=== PATIENT | male | born 1960 | race Caucasian/White ===

== ENCOUNTER 2016-09-19 12:39 | Emergency (ER) | payer BC ==
[2016-09-19 14:22] VITALS: BP 147/98
--- NOTE | 2016-09-19 14:40 | UC ---
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 pain is an aching staabbin fpain that statrts in his neck and radites into his left shoulder pain increases woth turning his head to the left nothign makes the pain lessen tried heat and colsd without relief took some tylenol PM last night with minimal relief denies any trauma to neck 4 months ago denies fever , headache, - History of Current Complaint Chief Complaint: UCGeneralIllness Stated Complaint: NECK/SHOULDER PAIN Time Seen by Provider: 09/19/16 14:31 Hx Obtained From: Patient - Allergies/Home Medications Allergies/Adverse Reactions: Allergies Allergy/AdvReac Type Severity Reaction Status Date / Time No Known Allergies Allergy Verified 09/19/16 14:05 Home Medications: Home Medications Glucosamine Sulfate 1,000 mg PO 09/19/16 [History Confirmed 09/19/16] Tamsulosin CAP* [Flomax CAP*] 0.4 mg PO DAILY 09/19/16 [History Confirmed ] PMH/Surg Hx/FS Hx/Imm Hx Previously Healthy: Yes Endocrine History Of: Denies: Diabetes, Thyroid Disease Cardiovascular History Of: Reports: Hypertension Denies: Cardiac Disorders, Pacemaker/ICD Respiratory History Of: Denies: COPD, Asthma GI/ History Of: Denies: Ulcer, Renal Disease Other History Of: Anticoagulant Therapy - Surgical History Surgical History: Yes Surgery Procedure, Year, and Place: Abdominal hernia -> 10 years ago. - Family History Known Family History: Negative: Cardiac Disease, Hypertension, Diabetes Family History: NON CONTRIBUTORY - Social History Occupation: Employed Full-time Lives: With Family Alcohol Use: None Substance Use Type: None Smoking Status (MU): Former Smoker Type: Cigarettes Amount Used/How Often: quit 2002 When Did the Patient Quit Smoking/Using Tobacco: 2002 - Immunization History Most Recent Influenza Vaccination: never Most Recent Tetanus Shot: 9-10 yrs ago Most Recent Pneumonia Vaccination: never Review Of Systems Constitutional: Positive: Negative Skin: Positive: Negative Eyes: Positive: Negative ENT: Positive: Negative Respiratory: Positive: Negative Cardiovascular: Positive: Negative Gastrointestinal: Positive: Negative Genitourinary: Positive: Negative Musculoskeletal: Positive: Other: - neck pain Neurological: Positive: Negative Psychological: Positive: Negative All Other Systems Reviewed And Are Negative: Yes Physical Exam Triage Information Reviewed: Yes Appearance: No Pain Distress, Well-Nourished Vital Signs: Initial Vital Signs Temp 98.7 F 09/19/16 14:10 Pulse 75 09/19/16 14:10 Resp 20 09/19/16 14:10 BP 147/98 09/19/16 14:10 Pulse Ox 95 09/19/16 14:10 Vital Signs Reviewed: Yes Eyes: Positive: Conjunctiva Clear ENT: Positive: Pharynx normal, Nasal drainage Neck: Positive: Supple, Other: - -Neck has no noted deformities or signs of inflammation. Curvature of cervical spine within normal limits. Spinous processes of cervical spine palpable, midline, and non-tender, No step-offs, Flexion, extension, and [id number] rotation of cervical spine causes mild discomfort. tenderness in left side of trapezius Respiratory: Positive: Lungs clear, Normal breath sounds, No respiratory distress, No accessory muscle use Cardiovascular: Positive: RRR, No Murmur, Pulses Normal Abdomen Description: Positive: Nontender, Soft Bowel Sounds: Positive: Present Musculoskeletal: Positive: No Edema Neurological Exam: Normal Psychological Exam: Normal Skin Exam: Normal Neck Pain Course/Dx - Course Course Of Treatment: exam completed. will send to PT for further evaluation and treatment. will treat with muscle relaxer and acetaminophen for acute exacerbation - Differential Dx/Diagnosis Differential Dx/HQI/PQRI: Sprain, Strain, Torticollis Provider Diagnoses: chronic neck pain- acute exacerbation Discharge - Discharge Plan Condition: Stable Disposition: HOME Prescriptions: Cyclobenzaprine TAB* [Flexeril 10 MG TAB*] 10 mg PO BEDTIME #7 tab Patient Education Materials: Chronic Neck Pain (GEN) Referrals: Blayne Hernández DO [Primary Care Provider] - Additional Instructions: Start flexeril as directed. Do not drink alcohol or drive while taking flexeril. Please call physical therapy for further evaluation and treatment. Take acetaminophen for fever or pain. Increase fluids and rest. Please review your discharge instructions. If your symptoms do not improve please call your primary care provider or return to urgent care. Your blood pressure is elevated. Please contact your primary care provider within 1 day -4 weeks for further evaluation.
== END 2016-09-19 15:14 | disposition home or self-care (01) ==
LOC: UCEAST 12:39
DX: M54.2 Cervicalgia (principal); M25.512 Pain in left shoulder; I10 Essential (primary) hypertension; Z87.891 Personal history of nicotine dependence
CPT/HCPCS: 99212; G0463

== ENCOUNTER 2017-05-21 09:25 | Inpatient (IN) | payer BC ==
--- NOTE | 2017-05-13 21:58 | HP ---
HISTORY AND PHYSICAL: DATE OF ADMISSION/SURGERY: 05/21/17 DATE OF OFFICE VISIT: 05/13/17 SURGEON: Faby Lopez MD * (DICTATED BY [facility] ARRIAGA) PROCEDURE: Left total knee arthroplasty. CHIEF COMPLAINT: Left knee pain. HISTORY OF PRESENT ILLNESS: Mr. Hauser is a 57-year-old gentleman with continued complaints of left knee pain secondary to end-stage osteoarthritis. He has failed conservative management, and elected to proceed with a left total knee arthroplasty, which is scheduled for 05/21/[address] Lopez. PAST MEDICAL HISTORY: History of a DVT in 2012. PAST SURGICAL HISTORY: Hernia repair. CURRENT MEDICATIONS: 1. Tamsulosin 0.4 mg daily. 2. Propranolol 10 mg 3 times a day. 3. Tramadol as needed. 4. Vitamin D3. 5. Glucosamine/chondroitin. 6. Xarelto 20 mg daily. ALLERGIES: None. FAMILY HISTORY: Cancer and stroke. SOCIAL HISTORY: He is a former smoker, he quit in 2002. He is a 57-year-old gentleman, lives with his . He denies use of drugs or alcohol. REVIEW OF SYSTEMS: A complete 14-point review of systems was reviewed with the patient, it was positive for history of a DVT in 2012. PHYSICAL EXAMINATION GENERAL: He is well developed, well nourished, in no acute distress. VITAL SIGNS: He stands 6 feet 2 inches tall, weighs 234 pounds. His blood pressure 143/95, his heart rate 74. HEENT: Normocephalic, atraumatic. NECK: Supple. No palpable lymph nodes. PULMONARY: The lungs are clear to auscultation bilaterally. CARDIO: Regular rate and rhythm. Strong S1, S2. ABDOMEN: Soft, nontender, nondistended. NEUROLOGICAL: He is alert, oriented x3. Cranial nerves II through XII are intact. MUSCULOSKELETAL: Left lower extremity, skin is intact. There are no open wounds or abrasions. He has a moderate joint effusion. 10 to 120 degrees of flexion with patellofemoral crepitus. No varus or valgus instability. 2+ dorsalis pedis pulses. His lower extremity muscle group strength were intact at 5/5 and he has intact sensation. ASSESSMENT AND PLAN: Mr. Hauser is a 57-year-old gentleman with end-stage osteoarthritis of the left knee. He has failed conservative management and elected to proceed with a left total knee arthroplasty, which is scheduled with Dr. Lopez on 05/21/17. Dr. Lopez discussed the risks and benefits of the surgery at today's visit and all of his questions were answered. He was instructed to stop his Xarelto today, 05/13/17 will be his last dose. Following the surgery, he will be placed on Lovenox in the hospital for DVT prophylaxis and back home on his home dose Xarelto. He was given a prescription today for Percocet and Colace and he will follow up with Dr. Lopez in 2 weeks after the surgery. [facility] AR[facility]AG[facility] [id number]/[facility] #: [id number] MTDD
[~2017-05-21 09:25] MED LIST: Acetaminophen TAB* 325 MG PO ONE; Buffered Lidocaine 0.9% SYRIN* 5 ML/SYR SYRINGE INTRADERM ONE; Dexamethasone IV* 4 MG/ML 1 ML (4 MG) IV SLOW PU ONE; Sodium Citrate/Citric Acid* 15 ML UDC PO ONE
[2017-05-21] MEDS ORDERED: Acetaminophen TAB* 325 MG ONE (09:37)
[2017-05-21] MEDS ORDERED: Buffered Lidocaine 0.9% SYRIN* 5 ML/SYR SYRINGE ONE (09:37)
[2017-05-21] MEDS ORDERED: Sodium Citrate/Citric Acid* 15 ML UDC ONE (09:37)
[2017-05-21] MEDS ORDERED: Dexamethasone IV* 4 MG/ML 1 ML (4 MG) ONE (09:37)
[2017-05-21] MEDS ORDERED: ceFAZolin 2 GM PREMIX (*) 2 GM/50 ML BAG IVPB ONE (09:38)
[2017-05-21] MEDS ORDERED: Ondansetron INJ* 2 MG/ML VIAL IV PRN ×2 (11:12→14:58)
[2017-05-21] MEDS ORDERED: HYDROcodone/ACETAMIN 5-325 MG* 1 TAB PO PRN (11:12)
[2017-05-21] MEDS ORDERED: HYDROmorphone INJ* 1 MG/ML CARPUJECT SYRINGE IV PRN (11:12)
[2017-05-21] MEDS ORDERED: oxyCODONE/Acetamin 5/325 MG* TAB PO PRN ×2 (11:12→14:58)
[2017-05-21] MEDS ORDERED: fentaNYL* 50 MCG/ML 2 ML VIAL (100 MCG VIAL) IV PRN (11:12)
[2017-05-21] MEDS ORDERED: DiMENhydriNATE IV* 50 MG/ML VIAL IV PUSH PRN (11:12)
[2017-05-21] MEDS ORDERED: oxyCODONE TAB* 5 MG TAB PO PRN (11:12)
[2017-05-21] MEDS ORDERED: fentaNYL* 50 MCG/ML 2 ML VIAL (100 MCG VIAL) ONE (11:27)
[2017-05-21] MEDS ORDERED: Bupivacaine 0.5% SDV PF* 30 ML VIAL ONE (11:27)
[2017-05-21] MEDS ORDERED: Propofol* 500 MG/50 ML BTL ONE (11:27)
[2017-05-21] MEDS ORDERED: Midazolam* 1 MG/ML 2 ML VIAL (2 MG) ONE ×4 (11:27→14:05)
[2017-05-21] MEDS ORDERED: Lidocaine 2% PF * 5 ML VIAL ONE (11:27)
[2017-05-21] MEDS ORDERED: Propofol* 10 MG/ML 20 ML BTL IV PUSH ONE (13:08)
[2017-05-21] MEDS ORDERED: Sterile Water for Inj* 10 ML ONE (13:28)
[2017-05-21] MEDS ORDERED: EPHEDrine (Pressors)* 50 MG/ML VIAL ONE (13:28)
[2017-05-21] MEDS ORDERED: Phenylephrine IV* 40 MCG/ML 10 ML SYRINGE ONE (13:28)
[2017-05-21] MEDS ORDERED: diPHENhydraMINE IV* 50 MG/ML 1 ml VIAL (BENADRYL) IV PRN (14:58)
[2017-05-21] MEDS ORDERED: Bisacodyl SUPP* 10 MG SUPP PR PRN (14:58)
[2017-05-21] MEDS ORDERED: Polyethylene Glycol 3350* 17 GM PACKET PO PRN (14:58)
[2017-05-21] MEDS ORDERED: Acetaminophen TAB* 325 MG PO PRN (14:58)
[2017-05-21] MEDS ORDERED: Magnesium Hydroxide LIQ* 30 ML UDC PO PRN (14:58)
[2017-05-21] MEDS ORDERED: Ondansetron TAB* 4 MG PO PRN (14:58)
[2017-05-21] MEDS ORDERED: ceFAZolin 1 GM in Dextrose (*) 1 GM/50 ML Duplex BAG IVPB SCH (15:00)
--- NOTE | 2017-05-21 15:43 | RAD ---
Indication: Left total knee replacement. 2 views of left knee demonstrates bipolar knee arthroplasty in satisfactory position. IMPRESSION: Left knee replacement in satisfactory position.
[2017-05-21] MEDS: oxyCODONE/Acetamin 5/325 MG* TAB PO PRN ×2 (19:05→23:05)
[2017-05-21] MEDS: Morphine INJ* 2 MG/ML 1 ML SYRINGE (TWO MG - NEW SYRINGE VERSION) IV PRN ×2 (20:27→23:08)
[2017-05-21] MEDS: Docusate CAP* 100 MG PO SCH (20:39)
[2017-05-21] MEDS: ceFAZolin 1 GM in Dextrose (*) 1 GM/50 ML BAG IVPB SCH (20:45)
[2017-05-22] MEDS: oxyCODONE TAB* 5 MG TAB PO PRN ×4 (01:20→19:18)
[2017-05-22] MEDS: oxyCODONE/Acetamin 5/325 MG* TAB PO PRN ×5 (03:31→23:48)
--- NOTE | 2017-05-22 04:13 | OP ---
DATE OF OPERATION: 05/21/17 - ROOM #350 DATE OF : 58 ATTENDING SURGEON: Faby Lopez MD CONTRACT AGENT: [facility] Arceo. Ms. Palencia did help throughout the procedure with preparation of the leg, wound retraction, manipulation of the knee, and wound closure. ANESTHESIOLOGIST: Dr. Fuller. ANESTHESIA: Spinal. PRE-OP DIAGNOSIS: Severe end-stage degenerative osteoarthritis of the left knee joint. POST-OP DIAGNOSIS: Severe end-stage degenerative osteoarthritis of the left knee joint. OPERATIVE PROCEDURE: Left total knee arthroplasty. TOURNIQUET TIME: 56 minutes. COMPLICATIONS: None. ESTIMATED BLOOD LOSS: 300 cc. SPECIMENS: Bone and cartilage from the left knee joint sent to Pathology. HARDWARE USED: This is [employer] cemented total knee arthroplasty hardware. For the femur, a size 7 left Oxinium Legion posterior stabilized femoral component. For the tibia, a size 6 left tibial baseplate Cristal II. For the patella, a 38-mm 3-peg all-poly patella; and for the insert, a 9-mm posterior stabilized articular insert size 5/6. BRIEF HISTORY/INDICATIONS: Mr. Hauser is a 57-year-old gentleman with years of increasingly severe left knee pain. Radiograph showed severe [id number] arthritis. He failed conservative treatment with anti-inflammatories, pain medication, intraarticular injections, and physical therapy. Due to continued pain and decreased quality of life, he elected to undergo left total knee arthroplasty. Informed consent was obtained from the patient. He understood the risks of surgery included, but were not limited to bleeding, infection, damage to nearby structures, continued pain, need for further surgery, intraoperative fracture, nerve palsy, hardware failure or loosening, knee stiffness, loss of motion, stroke, heart attack, blood clot, and . He wished to proceed. INTRAOPERATIVE FINDINGS: Intraoperatively, the patient was noted to have severe cartilage loss from all three compartments. DESCRIPTION OF PROCEDURE: Mr. Hauser was identified in the preanesthesia unit. His left lower extremity was marked as the correct operative side. Informed consent was signed and placed in the chart. The patient was taken to the operating room and placed under spinal anesthesia. A Ruiz catheter was placed. Tourniquet was placed on the left thigh. The left lower extremity was prepped and draped in the usual sterile fashion. Preop time-out was made to correctly identify the patient's side and site. Appropriate perioperative antibiotics were given within 1 hour of incision. Tourniquet was inflated until the tourniquet time for this procedure was 56 minutes. A 14-cm midline incision was made with a #10 blade and carried down to the extensor mechanism. A new #10 blade used to make a standard medial parapatellar arthrotomy. The patella was subluxed laterally. Electrocautery was used to subperiosteally elevate the soft tissue off the superomedial tibia to the mid sagittal plane. The knee was flexed up. The anterior horn of the lateral meniscus and ACL were sharply released. A drill was used to enter the distal femur. Intramedullary distal femoral cutting guide was pinned on the distal femur. A 9-mm distal femoral bone was carefully removed using an oscillating saw. The external rotation guide was pinned on the distal femur. Distal femur was sized to a size 7. Size 7 multi-cutting jig was pinned on the distal femur. An oscillating saw was used to make the appropriate 4 chamfer cuts. The PCL was completely released. Tibia was subluxed anteriorly. Extramedullary tibial cutting guide was pinned on the proximal tibia. An oscillating saw was used to make the proximal tibial cut perpendicular to the mechanical axis of the tibia. The bone was carefully removed. The knee was brought out into full extension. A spacer block had good fit. Medial and lateral ligaments were well balanced. Flexion and extension gaps were well balanced. The knee was flexed up. Lamina cfo was placed medially and laterally. Any remaining meniscus was carefully removed using electrocautery. Posterior osteophytes were removed using a curved osteotome. Trial size 7 left femur was impacted on to the distal femur and had good fit. The box for the posterior stabilized implant was prepared using a reamer and box cut osteotome. Size 6 trial of tibia and a 9-mm insert trial were placed and the knee was taken through a range of motion. The knee had full extension to 130 degrees of flexion with good patellofemoral tracking. The patella was everted. A 9-mm of patellar bone and cartilage were carefully removed using an oscillating saw. The patella was sized to a size 38. The 3-peg holes were drilled through the size 38 guide. A 38 trial patella was placed. The knee was taken through a range of motion and patellofemoral tracking was satisfactory. All trials were carefully removed. The tibia was subluxed anteriorly and sized to a size 6. Proximal tibia was prepared using a size 6 keel punch. All bony cut surfaces were copiously irrigated with sterile saline and dried. Final implants were cemented into place, starting with the tibia, followed by the femur, and lastly the patella. A 9-mm insert trial was placed. The knee was brought out into full extension. The tourniquet was turned down at 56 minutes. The knee was copiously irrigated with sterile saline. Electrocautery was used to obtain meticulous hemostasis. Once the cement had fully cured, the insert trial was removed. Any excess cement was carefully removed from around the implant and capsule. Final insert chosen was a 9-mm posterior stabilized articular insert size 5/6. This was locked into position on the tibial tray. Stability of the insert was checked and rechecked and noted to be stable. The knee was once again copiously irrigated with sterile saline. The extensor mechanism was closed using an interrupted #1 Vicryls over a medium Hemovac drain. The rest of the incision was closed in a layered fashion using 0 and 2-0 Vicryls. The skin was closed using running 3-0 nylon suture. Sterile Xeroform, 4x4s, and Webril were used to cover the incision. Mil wrap and cold pack were placed over this. The patient's anesthesia was reversed without difficulty. He was taken to the PACU in stable condition. Intended weight-bearing will be weightbearing as tolerated. Intended DVT prophylaxis will be Coumadin with a Lovenox bridge. [id number]/[facility] #: [id number] TRINO
[2017-05-22] MEDS: Morphine INJ* 2 MG/ML 1 ML SYRINGE (TWO MG - NEW SYRINGE VERSION) IV PRN (05:28)
[2017-05-22] MEDS: ceFAZolin 1 GM in Dextrose (*) 1 GM/50 ML BAG IVPB SCH ×2 (05:46→12:52)
[2017-05-22 07:10] LABS: Hematocrit 37 % (42-52); Hemoglobin 12.4 g/dl (14.0-18.0)
[2017-05-22 07:35] LABS: BUN/Creatinine Ratio 16.9 (8-20); EGFR African American 81.5 (>60); EGFR Non-African American 63.4 (>60); Potassium 4.1 mmol/L (3.5-5.0)
[2017-05-22] MEDS ORDERED: NS 0.9% 1000 ML* 1,000 ML IV SCH (07:45)
[2017-05-22] MEDS: Morphine TAB Extended Release (*) 30 MG TAB.ER PO SCH ×2 (08:10→20:19)
[2017-05-22] MEDS: Tamsulosin CAP* 0.4 MG PO SCH (08:11)
[2017-05-22] MEDS: Docusate CAP* 100 MG PO SCH ×2 (08:11→20:19)
[2017-05-22] MEDS: Propranolol TAB* 10 MG PO SCH (08:11)
--- NOTE | 2017-05-22 08:52 | PN ---
Progress Note - Progress Note Date of Service: 05/22/17 SOAP: Subjective: []Patient seen OOB in chair. Pain well controlled with no chest pain, shortness of breath, leg numbness or nausea. Objective: [] Vital Signs Temp 97.5 F 05/22/17 07:25 Pulse 95 05/22/17 07:25 Resp 18 05/22/17 08:10 BP 116/51 05/22/17 07:25 Pulse Ox 94 05/22/17 08:00 Intake & Output 05/21/17 05/22/17 05/22/17 18:59 06:59 18:59 Intake Total 2910 1598 Output Total 1050 1250 Balance 1860 348 Weight 239 lb Intake: IV Fluids 2700 1048 ABX - CEFAZOLIN 58 LR 2700 990 Oral 210 550 Output: Urine 125 Ruiz 1000 1125 Estimated Blood Loss 50 Laboratory Last Values Hgb 12.4 g/dl (14.0-18.0) L 05/22/17 07:01 Hct 37 % (42-52) L 05/22/17 07:01 INR (Anticoag Therapy) 1.00 (0.77-1.02) 05/22/17 07:01 Sodium 134 mmol/L (133-145) 05/22/17 07:01 Potassium 4.1 mmol/L (3.5-5.0) 05/22/17 07:01 Chloride 100 mmol/L (101-111) L 05/22/17 07:01 Carbon Dioxide 26 mmol/L (22-32) 05/22/17 07:01 Anion Gap 8 mmol/L (2-11) 05/22/17 07:01 BUN 20 mg/dL (6-24) 05/22/17 07:01 Creatinine 1.18 mg/dL (0.67-1.17) H 05/22/17 07:01 Est GFR ( Amer) 81.5 (>60) 05/22/17 07:01 Est GFR (Non-Af Amer) 63.4 (>60) 05/22/17 07:01 BUN/Creatinine Ratio 16.9 (8-20) 05/22/17 07:01 Glucose 148 mg/dL (70-100) H 05/22/17 07:01 Calcium 9.0 mg/dL (8.6-10.3) 05/22/17 07:01 General: Well appearing, no acute distress LLE: Drain pulled this morning without complication by Dr. Lopez BL LE: Calves supple and nontender without erythema, edema or palpable cords. Negative flako's sign. DP/PT pulses 2+. DF/PF intact. Assessment: []POD 1 s/p left total knee arthroplasty 05/21/17, Dr Lopez. Plan: []WBAT PT/OT Rasta in house, leandroalto at D/C Continued pain control
[2017-05-22] MEDS: Enoxaparin(*) 40 MG/0.4 ML SYR SUBCUT SCH (12:07)
[2017-05-23] MEDS: oxyCODONE TAB* 5 MG TAB PO PRN ×2 (04:20→09:53)
[2017-05-23 06:16] LABS: Hematocrit 30 % (42-52); Hemoglobin 10.4 g/dl (14.0-18.0); Mean Platelet Volume 8 um3 (7.4-10.4)
[2017-05-23] MEDS: oxyCODONE/Acetamin 5/325 MG* TAB PO PRN (07:39)
[2017-05-23] MEDS: Docusate CAP* 100 MG PO SCH (08:20)
[2017-05-23] MEDS: Morphine TAB Extended Release (*) 30 MG TAB.ER PO SCH (08:20)
[2017-05-23] MEDS: Tamsulosin CAP* 0.4 MG PO SCH (08:20)
[2017-05-23] MEDS: Propranolol TAB* 10 MG PO SCH (08:20)
[2017-05-23] MEDS: Enoxaparin(*) 40 MG/0.4 ML SYR SUBCUT SCH (11:22)
--- NOTE | 2017-05-23 11:25 | PN ---
Progress Note - Progress Note Date of Service: 05/23/17 SOAP: Subjective: []Patient seen at bedside. He is feeling well with good pain control. He desires to go home today. No chest pain, shortness of breath, nausea, chills, fever or leg numbness. Objective: []General: Well appearing, no acute distress LLE: Dressing changed by Dr. Lopez without complication this morning. BL LE: Calves supple and nontender without erythema, edema or palpable cords. Negative flako's sign. DP/PT pulses 2+. DF/PF intact. Assessment: []POD 2 s/p left total knee arthroplasty 05/21/17, Dr Lopez. Plan: []WBAT PT/OT Patient denies home care. Rx for PT given. Will FU in office with Dr. Lopez within 1 week. Rasta in house, celestina at D/C Continued pain control
[2017-05-23 11:52] VITALS: BP 115/73
--- NOTE | 2017-05-25 01:52 | DS ---
DISCHARGE SUMMARY: DATE OF ADMISSION: 05/21/17 DATE OF DISCHARGE: 05/23/17 SURGEON: Faby Lopez MD * (DICTATED BY [facility]OME[facility]) MICROBIOLOGY QUALITY CONTROL TECHNICIAN: [facility] Arceo PRE-OP DIAGNOSIS: Severe end-stage degenerative osteoarthritis of the left knee joint. OPERATIVE PROCEDURE: Left total knee arthroplasty. HISTORY: Mr. Hauser is a 57-year-old male with years of increasingly severe left knee pain, bone on bone arthritis on radiograph. He failed conservative management with anti-inflammatories, pain medications, intraarticular injections , and physical therapy. He had decreased quality of life and therefore elected to undergo a left total knee arthroplasty. HOSPITAL COURSE: Postop day 1, H and H was 12.4 and 37. Postop day 2, H and H 10.4 and 30, platelet count 135. Postop day 1, he was well appearing in no acute distress. His drain was pulled without complication by Dr. Lopez. His bilateral lower extremities, calves supple and nontender without erythema, edema , or palpable cords. Negative Homans sign. Dorsalis pedis and posterior tibial pulses 2+. Dorsiflexion, plantar flexion intact. Postop day 2, he is well appearing, in no acute distress. Dressing was changed by Dr. Lopez without complications. Calves supple and nontender without erythema, edema, or palpable cords. Negative Homans sign. Posterior tibial and dorsalis pedis pulses intact and 2+. Dorsiflexion and plantar flexion intact. The patient was deemed to be medically and orthopedically stable to discharge home. Discharge condition was stable. DISCHARGE MEDICATIONS: 1. Xarelto 20 mg tabs 1 tab per day. 2. Flomax 0.4 mg tabs once daily. 3. Glucosamine sulfate 2 tabs p.o. daily. 4. Propranolol 20 mg daily. 5. Tylenol 650 mg p.o. q.4 hours p.r.n., not to exceed 4000 mg per day of all sources. 6. Docusate 100 mg p.o. t.i.d. 7. Percocet 1 to 2 tabs every 4 to 6 hours p.r.n. pain. 8. Morphine extended release 30 mg p.o. q.12 hours p.r.n., not to exceed 2 tabs in a day. DISCHARGE PLAN: Weightbearing as tolerated. May shower after 05/24/17. Do not submerge wounds. Follow up with orthopedic office with increased drainage, redness, increased pain, fever, or any other concerns. Go to the emergency room with shortness of breath or chest pain. Regular diet. Continue Colace for stool softeners. Call office if no bowel motion within 48 hours. Per patient request, outpatient physical therapy. He may restart his Xarelto on . This medication is regularly prescribed by primary care. The pharmacy was called to ensure he had access to this medication. Pharmacist confirms that he does have standing prescriptions for Xarelto, approved by his primary care provider though a prescription from the orthopedic office office would require prior put in new prescription, which is unnecessary as he does have the prescription from the primary care office. For pain control, MS Contin 30 mg 1 tab every 12 hours as needed for pain, Percocet 5/325 mg 1 to 2 tabs every 4 to 6 hours as needed for pain. The patient knows that these medications may cause sedation, confusion, changes in breathing. He will limit use as much as able and call office or other medical provider with any concerns. Follow up with Dr. Lopez within 1 week for appointment as the patient is not going to be receiving home nursing. He is aware, office has been contacted as well. [facility]I GOMEZ [id number]/[facility] #: [id number] TRINO
== END 2017-05-23 12:35 | disposition home or self-care (01) | DRG 302 ==
LOC: AA 09:25 → SSU 16:37
PROVIDERS: ADMIT Orthopaedic Surgery Adult Reconstructive Orthopaedic Surgery; ATTEND Orthopaedic Surgery Adult Reconstructive Orthopaedic Surgery
PROC: 0SRD0J9 Replacement of Left Knee Joint with Synthetic Substitute, Cemented, Open Approach (ICD-10-PCS; principal; 2017-05-21 12:00)
DX: M17.12 Unilateral primary osteoarthritis, left knee (principal); G25.0 Essential tremor; M25.762 Osteophyte, left knee; Z82.3 Family history of stroke; Z86.718 Personal history of other venous thrombosis and embolism; Z87.891 Personal history of nicotine dependence; Z79.01 Long term (current) use of anticoagulants
CPT/HCPCS: 36415; 80048; 85014; 85018; 85049; 85610; A9270-GY; C1776; J0690; J1100; J1650; J2250; J2270; J2704; J3010

== ENCOUNTER 2017-05-28 17:15 | Emergency (ER) | payer BC ==
--- NOTE | 2017-05-28 17:43 | UC ---
Abdominal Pain Male HPI - HPI Summary HPI Summary: Abdomen pain today has not had a stool in two days 7 days s/p left knee replacement and is using opiate pain medications regularly. no fevers, chills nausea or vomiting did have a cath in bladder for 2 days post op---is taking less than recommended amount of Colace - History of Current Complaint Hx Obtained From: Patient Onset/Duration: Sudden Onset, Lasting Days - 1, Still Present Timing: Constant Severity Initially: Moderate Severity Currently: Moderate Location: Diffuse Radiates: No Character: Cramping Aggravating Factor(s): Nothing Alleviating Factor(s): Nothing Associated Signs And Symptoms: Positive: Constipation, Decreased Appetite - today. Negative: Fever, Cough, Chest Pain <Kathie Cummins - Last Filed: 05/28/17 19:17> <Vanna Alvares - Last Filed: 05/28/17 21:26> - History of Current Complaint Chief Complaint: UCAbdominalPain Stated Complaint: abdominal pain Time Seen by Provider: 05/28/17 17:32 - Allergies/Home Medications Allergies/Adverse Reactions: Allergies Allergy/AdvReac Type Severity Reaction Status Date / Time No Known Allergies Allergy Verified 05/28/17 17:24 PMH/Surg Hx/FS Hx/Imm Hx Previously Healthy: No Cardiovascular History: Other - DVT left leg years ago Other Cardiovascular History: DVT Left leg in the past Other History Of: Anticoagulant Therapy - Surgical History Surgical History: Yes Surgery Procedure, Year, and Place: Abdominal hernia- >5 YEARS AGO. Left knee replacement 05/21/17 - Family History Known Family History: Negative: Cardiac Disease, Hypertension, Diabetes - Social History Occupation: Employed Full-time Lives: With Family Alcohol Use: None Substance Use Type: None Smoking Status (MU): Former Smoker Type: Cigarettes Amount Used/How Often: 8-9 CIGARETTES PER DAY X 27 YEARS OFF AND ON Have You Smoked in the Last Year: No When Did the Patient Quit Smoking/Using Tobacco: 2002 - Immunization History Most Recent Influenza Vaccination: 2017 Most Recent Tetanus Shot: 9-10 yrs ago Most Recent Pneumonia Vaccination: never <Kathie Cummins - Last Filed: 05/28/17 19:17> Review of Systems Constitutional: Negative Skin: Negative Eyes: Negative ENT: Negative Respiratory: Negative Cardiovascular: Negative Gastrointestinal: Abdominal Pain, Other - constopation Genitourinary: Negative Motor: Negative Neurovascular: Negative Musculoskeletal: Negative, Edema - left leg not more than yesterday when seen by orthopedic md Neurological: Negative Psychological: Negative Is Patient Immunocompromised?: No All Other Systems Reviewed And Are Negative: Yes <Kathie Cummins - Last Filed: 05/28/17 19:17> Physical Exam Triage Information Reviewed: Yes Appearance: Well-Appearing, No Pain Distress, Obese, Other: - pale Vital Signs: Initial Vital Signs Temp 97.9 F 05/28/17 17:20 Pulse 70 05/28/17 17:20 Resp 12 05/28/17 17:20 BP 163/90 05/28/17 17:20 Pulse Ox 99 05/28/17 17:20 Vital Signs Reviewed: Yes Eye Exam: Normal Eyes: Positive: Conjunctiva Clear ENT Exam: Normal ENT: Positive: Normal ENT inspection, Hearing grossly normal, Pharynx normal, TMs normal, Uvula midline. Negative: Nasal congestion, Nasal drainage, Tonsillar swelling, Trismus, Muffled voice, Hoarse voice, Dental tenderness, Sinus tenderness Dental Exam: Normal Neck exam: Normal Neck: Positive: Supple, Nontender, No Lymphadenopathy Respiratory Exam: Normal Respiratory: Positive: Chest non-tender, Lungs clear, Normal breath sounds, No respiratory distress, No accessory muscle use Cardiovascular Exam: Normal Cardiovascular: Positive: RRR, No Murmur, Pulses Normal, Brisk Capillary Refill Abdominal Exam: Normal Abdomen Description: Positive: No Organomegaly, Soft. Negative: CVA Tenderness (R), CVA Tenderness (L), Distended, Guarding, Hepatomegaly, McBurney's Point Tenderness, Peritoneal Signs Bowel Sounds: Positive: Present Musculoskeletal Exam: Normal Musculoskeletal: Positive: Strength Intact, ROM Intact, Edema @ - left leg Neurological Exam: Normal Neurological: Positive: Alert Psychological Exam: Normal Psychological: Positive: Normal Response To Family Skin Exam: Other Skin: Positive: Other - sutures left knee intact no evidence of infection <Kathie Cummins - Last Filed: 05/28/17 19:17> Vital Signs: Initial Vital Signs Temp 97.9 F 05/28/17 17:20 Pulse 70 05/28/17 17:20 Resp 12 05/28/17 17:20 BP 163/90 05/28/17 17:20 Pulse Ox 99 05/28/17 17:20 <Vanna Alvares - Last Filed: 05/28/17 21:26> Diagnostics - Radiology No standard instances Xray Interpretation: No Acute Changes Radiology Interpretation Completed By: Radiologist - EKG Cardiac Rate: NL Cardiac Rhythm: Sinus: Normal Ectopy: None ST Segment: Normal <Kathie Cummins - Last Filed: 05/28/17 19:17> Abd Pain Male Course/Dx - Course Course Of Treatment: patient wishes not to go to ED as recommended. Patient will sign out AMA with follow up RAY and return to ED at any time by EMS - Differential Dx/Clinical Impression Provider Diagnoses: Abdomen pain, <Kathie Cummins - Last Filed: 05/28/17 19:17> Discharge <Kathie Cummins - Last Filed: 05/28/17 19:17> <Vanna Alvares - Last Filed: 05/28/17 21:26> - Discharge Plan Condition: Stable Disposition: HOME Patient Education Materials: Constipation (ED), Abdominal Pain (ED) Referrals: Blayne Hernández DO [Primary Care Provider] - 1 Day Additional Instructions: We strongly recommend further treatment in the emergency department tonight. Attestation Statement User Type: Provider - I was available for consult. This patient was seen by the EMIGDIO. The patient was not presented to, seen by, or examined by me. -Aureliano <Vanna Alvares - Last Filed: 05/28/17 21:26>
--- NOTE | 2017-05-28 18:26 | RAD ---
INDICATION: Pain. Constipation. COMPARISON: None TECHNIQUE: Erect and supine views of the abdomen are submitted. FINDINGS: Bones: There are no acute bony findings. Soft tissues: The soft tissues appear normal. The psoas margins are sharp. Bowel gas pattern: Normal Calcifications: There are no abnormal calcifications. Other: None IMPRESSION: NEGATIVE EXAMINATION.
[2017-05-28 19:00] VITALS: BP 160/83
== END 2017-05-28 19:14 | disposition home or self-care (01) ==
LOC: UCEAST 17:15
DX: Z87.891 Personal history of nicotine dependence (principal); R10.9 Unspecified abdominal pain; Z96.652 Presence of left artificial knee joint; Z79.891 Long term (current) use of opiate analgesic
CPT/HCPCS: 74020; 81003; 93005; 99212; G0463

== ENCOUNTER 2017-05-29 01:30 | Emergency (ER) | payer BC ==
[2017-05-29] MEDS ORDERED: Magnesium CITRATE* 300 ML BTL PO ONE ×2 (03:45→04:32)
[2017-05-29 03:52] LABS: Hematocrit 31 % (42-52); Hemoglobin 10.4 g/dl (14.0-18.0); Mean Corpuscular HGB Conc 34 g/dl (31-36); Mean Corpuscular Hemoglobin 29 pg (27-31); Mean Corpuscular Volume 87 fL (80-94); Mean Platelet Volume 7 um3 (7.4-10.4); Red Blood Count 3.56 10^6/ul (4.0-5.4); Red Cell Distribution Width 13 % (10.5-15); White Blood Count 10.5 10^3/ul (3.5-10.8)
[2017-05-29 04:04] LABS: Albumin 3.6 g/dL (3.2-5.2); BUN/Creatinine Ratio 17.8 (8-20); Calcium 9.4 mg/dL (8.6-10.3); EGFR African American 97.6 (>60); EGFR Non-African American 75.9 (>60); Globulin 3.6 g/dL (2-4); Potassium 3.9 mmol/L (3.5-5.0); Total Bilirubin 0.9 mg/dL (0.2-1.0); Total Protein 7.2 g/dL (6.4-8.9)
--- NOTE | 2017-05-29 04:35 | ED ---
Argenis Menard Emily, scribed for Raina Jaramillo MD on 05/29/17 at 0328 . Abdominal Pain/Male - HPI Summary HPI Summary: This patient is a 57 year old M presenting to [facility] accompanied by with a chief complaint of LLQ abd pain that began at 0800 yesterday. The patient rates the pain 10/10 in severity. Symptoms aggravated by nothing. Symptoms alleviated by nothing. Patient reports diaphoresis and dark urine. Patient denies N/V/D, fever, chills, VALDEZ, ear ache, CP, back pain, hematuria, diplopia, blurred vision , anxiety, and depression. Pt reports last BM on 05/25/2017. Pt reports a hx of constipation. - History of Current Complaint Chief Complaint: EDAbdPain Stated Complaint: ABDOMINAL PAIN Time Seen by Provider: 05/29/17 03:10 Hx Obtained From: Patient Onset/Duration: Sudden Onset, Lasting Hours, Still Present Severity Initially: Severe Severity Currently: Severe Pain Intensity: 10 Pain Scale Used: 0-10 Numeric Location: Discrete At: LLQ Aggravating Factor(s): Nothing Alleviating Factor(s): Nothing Associated Signs And Symptoms: Positive: Other - Positive diaphoresis and dark urine. Negative N/V/D, fever, chills, VALDEZ, ear ache, CP, back pain, hematuria, diplopia, blurred vision, anxiety, and depression - Allergies/Home Medications Allergies/Adverse Reactions: Allergies Allergy/AdvReac Type Severity Reaction Status Date / Time No Known Allergies Allergy Verified 05/29/17 01:38 PMH/Surg Hx/FS Hx/Imm Hx Previously Healthy: No Endocrine/Hematology History: Reports: Hx Anticoagulant Therapy Denies: Hx Diabetes, Hx Thyroid Disease Cardiovascular History: Reports: Hx Hypercholesterolemia, Hx Hypertension - ON MEDICATION FOR, Other Cardiovascular Problems/Disorders - 2012- LEFT LEG DVT- ON XARELTO-LD 05/13/17 Denies: Hx Pacemaker/ICD Respiratory History: Denies: Hx Asthma, Hx Chronic Obstructive Pulmonary Disease (COPD), Hx Pulmonary Embolism GI History: Denies: Hx Ulcer History: Denies: Hx Renal Disease Musculoskeletal History: Reports: Hx Arthritis - KNEES Denies: Hx Rheumatoid Arthritis, Hx Osteoporosis Sensory History: Reports: Hx Contacts or Glasses - READERS Denies: Hx Hearing Aid Opthamlomology History: Reports: Hx Contacts or Glasses - READERS Neurological History: Reports: Other Neuro Impairments/Disorders - FAMILIAR TREMORS Psychiatric History: Denies: Hx Panic Disorder - Surgical History Surgery Procedure, Year, and Place: Abdominal hernia- >5 YEARS AGO. Left knee replacement 05/21/17 Hx Anesthesia Reactions: No Infectious Disease History: No Infectious Disease History: Denies: Hx Clostridium Difficile, Hx Hepatitis, Hx Human Immunodeficiency Virus (HIV), Hx of Known/Suspected MRSA, Hx Shingles, Hx Tuberculosis, Hx Known/ Suspected VRE, Hx Known/Suspected VRSA, History Other Infectious Disease, Traveled Outside the [place] in Last 30 Days - Family History Known Family History: Negative: Cardiac Disease, Hypertension, Diabetes Family History: NON CONTRIBUTORY - Social History Occupation: Employed Full-time Lives: With Family Alcohol Use: None Substance Use Type: Reports: None Smoking Status (MU): Former Smoker Type: Cigarettes Amount Used/How Often: 8-9 CIGARETTES PER DAY X 27 YEARS OFF AND ON Have You Smoked in the Last Year: No Review of Systems Positive: Skin Diaphoresis. Negative: Fever, Chills Negative: Blurred Vision, Diplopia Negative: Ear Ache Negative: Chest Pain Negative: Shortness Of Breath Positive: Abdominal Pain. Negative: Vomiting, Diarrhea, Nausea Positive: other - Positive dark urine. Negative: hematuria Positive: Other - Negative back pain Negative: Headache Negative: Anxious, Depressed All Other Systems Reviewed And Are Negative: No Physical Exam - Summary Physical Exam Summary: Appearance: Alert, conversive, nontoxic appearing Skin: Warm, dry, no mottling, no rashes, no contusions HEENT: EOMI, PERRL, moist mucous membranes Neck: No masses on the neck, supple Respiratory: Clear to auscultation, breath sounds present, no rales, no rhonchi , no wheezes Cardiovascular: RRR, pulses are symmetrical in both lower and upper extremities Abdomen: Soft, non-tender. Completely benign Bowel Sounds: Present Musculoskeletal: No CVA tenderness, no obvious deformity, moving all extremities in a grossly normal manner Neurological: A&Ox3, CN II-XII Intact, moving all extremities symmetrically Psychiatric: Normal affect and mood Triage Information Reviewed: Yes Vital Signs On Initial Exam: Initial Vitals Temp Pulse Resp BP Pulse Ox 97.3 F 79 16 149/93 96 05/29/17 01:33 05/29/17 01:33 05/29/17 01:33 05/29/17 01:33 05/29/17 01:33 Vital Signs Reviewed: Yes Diagnostics - Vital Signs Vital Signs Temp Pulse Resp BP Pulse Ox 05/29/17 01:33 97.3 F 79 16 149/93 96 - Laboratory Lab Results: Lab Results 05/29/17 05/29/17 05/29/17 Range/Units 03:32 03:32 03:32 WBC 10.5 (3.5-10.8) 10^3/ul RBC 3.56 L (4.0-5.4) 10^6/ul Hgb 10.4 L (14.0-18.0) g/dl Hct 31 L (42-52) % MCV 87 (80-94) fL MCH 29 (27-31) pg MCHC 34 (31-36) g/dl RDW 13 (10.5-15) % Plt Count 172 (150-450) 10^3/ul MPV 7 L (7.4-10.4) um3 Neut % (Auto) 82.0 (38-83) % Lymph % (Auto) 6.1 L (25-47) % [place] % (Auto) 11.6 H (1-9) % Eos % (Auto) 0 (0-6) % Baso % (Auto) 0.3 (0-2) % Absolute Neuts (auto) 8.6 H (1.5-7.7) 10^3/ul Absolute Lymphs (auto) 0.6 L (1.0-4.8) 10^3/ul Absolute Monos (auto) 1.2 H (0-0.8) 10^3/ul Absolute Eos (auto) 0 (0-0.6) 10^3/ul Absolute Basos (auto) 0 (0-0.2) 10^3/ul Absolute Nucleated RBC 0.02 10^3/ul Nucleated RBC % 0.1 Sodium 133 (133-145) mmol/L Potassium 3.9 (3.5-5.0) mmol/L Chloride 99 L (101-111) mmol/L Carbon Dioxide 25 (22-32) mmol/L Anion Gap 9 (2-11) mmol/L BUN 18 (6-24) mg/dL Creatinine 1.01 (0.67-1.17) mg/dL Est GFR ( Amer) 97.6 (>60) Est GFR (Non-Af Amer) 75.9 (>60) BUN/Creatinine Ratio 17.8 (8-20) Glucose 163 H (70-100) mg/dL Lactic Acid 1.7 (0.5-2.0) mmol/L Calcium 9.4 (8.6-10.3) mg/dL Total Bilirubin 0.90 (0.2-1.0) mg/dL AST 31 (13-39) U/L ALT 46 (7-52) U/L Alkaline Phosphatase 50 (34-104) U/L Total Protein 7.2 (6.4-8.9) g/dL Albumin 3.6 (3.2-5.2) g/dL Globulin 3.6 (2-4) g/dL Albumin/Globulin Ratio 1.0 (1-3) Lipase 17 (11.0-82.0) U/L Result Diagrams: 05/29/17 03:32 05/29/17 03:32 Lab Statement: Any lab studies that have been ordered have been reviewed, and results considered in the medical decision making process. Abdominal Pain Fem Course/Dx - Course Assessment/Plan: This patient is a 57 year old M presenting to [facility] accompanied by with a chief complaint of LLQ abd pain that began at 0800 yesterday. Physical Exam Findings. Completely benign abdominal exam. Test results with no significant abnormalities. In the ED course the patient was given Citrate of Magnesia. Patient will be discharged with follow up from PCP. The patient is agreeable with this plan. - Diagnoses Provider Diagnoses: Abdominal pain, Constipation Discharge - Discharge Plan Condition: Stable Disposition: HOME Patient Education Materials: Constipation (ED), Abdominal Pain (ED) Referrals: Blayne Hernández DO [Primary Care Provider] - Additional Instructions: drink the magnesium citrate as instructed. if your constipation persists, you may need to use an enema. drink plenty of fluids. eat plenty of fruits and vegetables. return if worse or any new symptoms. The documentation as recorded by the Argenis das Emily accurately reflects the service I personally performed and the decisions made by me, Raina Jaramillo MD.
[2017-05-29 04:47] VITALS: BP 123/63
== END 2017-05-29 04:47 | disposition home or self-care (01) ==
LOC: ED 01:30
DX: R10.32 Left lower quadrant pain (principal); K59.00 Constipation, unspecified; Z87.891 Personal history of nicotine dependence; Z79.01 Long term (current) use of anticoagulants
CPT/HCPCS: 36415; 80053; 83605; 83690; 85025; 99283; A9270-GY

== ENCOUNTER 2017-05-30 14:31 | Inpatient (IN) | payer BC ==
[2017-05-30] MEDS ORDERED: Ondansetron INJ* 2 MG/ML VIAL IV ONE (14:43)
[2017-05-30] MEDS ORDERED: Piperacillin/Tazobac ADVAN(*) 3.375 GM in NS 0.9% 100 ML* 100 ML IVPB ONE (14:43)
[2017-05-30] MEDS ORDERED: NS 0.9% 1000 ML*IV.FLUID IV ONE (14:43)
[2017-05-30] MEDS ORDERED: Vancomycin(*) 1,000 MG VIAL IVPB SCH (15:00)
[2017-05-30] MEDS ORDERED: Vancomycin 1500 MG IV - x ONCE IVPB ONE ×2 (15:00)
[2017-05-30 15:09] LABS: Hematocrit 35 % (42-52); Hemoglobin 11.9 g/dl (14.0-18.0); Mean Corpuscular HGB Conc 34 g/dl (31-36); Mean Corpuscular Hemoglobin 29 pg (27-31); Mean Corpuscular Volume 86 fL (80-94); Mean Platelet Volume 7 um3 (7.4-10.4); Red Blood Count 4.08 10^6/ul (4.0-5.4); Red Cell Distribution Width 14 % (10.5-15); White Blood Count 12.9 10^3/ul (3.5-10.8)
[2017-05-30 15:11] LABS: Add Diff/Slide Review? Slide Review Added; Comments Flag Yes
[2017-05-30 15:21] LABS: Albumin 3.8 g/dL (3.2-5.2); BUN/Creatinine Ratio 10.8 (8-20); C Reactive Protein 194.34 mg/L (< 5.00); Calcium 9.5 mg/dL (8.6-10.3); EGFR African American 45.9 (>60); EGFR Non-African American 35.7 (>60); Globulin 3.9 g/dL (2-4); Potassium 3.6 mmol/L (3.5-5.0); Total Protein 7.7 g/dL (6.4-8.9)
--- NOTE | 2017-05-30 15:23 | RAD ---
HISTORY: Fever COMPARISONS: May 13, 2017 VIEWS: 1: frontal portable view of the chest at 2:58 PM FINDINGS: LINES AND TUBES: None. CARDIOMEDIASTINAL SILHOUETTE: The cardiomediastinal silhouette is normal for portable technique. PLEURA: The costophrenic angles are sharp. No pleural abnormalities are noted. LUNG PARENCHYMA: There is minimal linear opacification of the left lung base. The lung volumes are low. ABDOMEN: The upper abdomen is clear. There is no subphrenic gas. BONES AND SOFT TISSUES: No bone or soft tissue abnormalities are noted. IMPRESSION: MINIMAL LINEAR ATELECTASIS OF THE LEFT LUNG BASE.
[2017-05-30] MEDS ORDERED: Acetaminophen SUPP* 650 MG SUPP PR ONE (15:26)
[2017-05-30 15:39] LABS: Troponin I 0.33 ng/mL (<0.04)
[2017-05-30] MEDS ORDERED: NS 0.9% 1000 ML* 2,000 ML IV ONE (15:59)
[2017-05-30] MEDS ORDERED: Hydrocortisone INJ* 100 MG VIAL IV ONE (16:09)
--- NOTE | 2017-05-30 16:21 | RAD ---
INDICATION: Left lower quadrant pain and fever. Relevant surgical history includes abdominal hernia repair 5 years earlier. COMPARISON: None. TECHNIQUE: Multidetector CT images of the chest, abdomen and pelvis were obtained from the lung apices to the ischial tuberosities without intravenous contrast but with oral contrast.. CHEST: In the right middle lobe abutting the minor fissure there is a nodule measuring 5 x 8 mm in the axial plane but barely 2 mm in cephalocaudal projection, morphology most consistent with a lymph node. There are diffuse hypoventilatory changes as well as subpleural bullae predominantly along the medial aspect of the upper lobes and lung apices. There is more linear pleural based density along the dependent right lower lobe and left lobe. There is no mediastinal or hilar lymphadenopathy. The left lobe of the thyroid there is a 1.4 cm low attenuating focus with a small focus of calcium. The heart and major vascular structures are grossly normal in appearance. ABDOMEN & PELVIS: The liver, spleen and pancreas are grossly normal in appearance. The gallbladder is normal. Bilaterally the adrenal glands are lobular in configuration as well as hyperattenuating. The right adrenal gland measures 2.9 x 3 cm in the axial plane at 5.7 cm in the cephalocaudal projection. The left adrenal gland measures 2.8 x 3.2 cm in the axial plane and 7 cm in the cephalocaudal projection. There is infiltration of the mesenteric fat surrounding the bilateral adrenal glands appear to be mostly contained within the anterior pararenal fat adjacent to the adrenal glands. To a lesser extent there is infiltration at the celiac trunk. A lymph node adjacent to the pancreatic head is mildly enlarged measuring 1.3 x 2.7 cm. The kidneys are normal in appearance without focal mass, calcification or signs of hydronephrosis. Evaluation of the gastrointestinal tract is limited without oral contrast. The small and large bowel are not distended. The normal 6 mm appendix is identified in the right lower quadrant (axial image 86). There are air-fluid levels throughout much of the colon particularly transverse colon. There is nondependent gas in the wall of the colon at the hepatic flexure (axial image 58 and coronal image 22). There is no gross retroperitoneal or mesenteric lymphadenopathy. The pelvic viscera is normal in appearance. The mildly calcified abdominal aorta and iliac arteries are normal in course and diameter. Multilevel degenerative change of the thoracic and lumbar spine includes loss of intervertebral disc height. There is vacuum disc phenomenon at L4/L5 including the left facet joint. IMPRESSION: 1. 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 Please correlate to clinical signs and symptoms of adrenal crisis. 2. Pneumatosis noted in the wall of the colon at the hepatic flexure, a finding that can be seen in the setting of bowel infarction. There are also air-fluid levels throughout the proximal colon indicating diarrheal illness. 3. Pulmonary nodule at the right minor fissure with an average dimension of 5 mm as a morphology most consistent with intrapleural lymph node. If the patient possesses high risk factors for lung cancer, this can be followed up according to the Fleischner Society criteria. THE RECOMMENDATIONS FOR FOLLOWUP AND MANAGEMENT OF AN INCIDENTALLY DETECTED PULMONARY NODULE LESS THAN 6 MM IN SIZE, IN A PATIENT WITHOUT A HISTORY OF MALIGNANCY, INCLUDE NO FOLLOWUP FOR A LOW-RISK PATIENT OR OPTIONAL FOLLOWUP CT IN 12 MONTHS FOR A HIGH RISK PATIENT. NOTES: SIZE = AVERAGE LENGTH AND WIDTH; HIGH RISK IS DEFINED A HISTORY OF SMOKING OR OTHER KNOW RISK FACTORS FOR LUNG CANCER; LOW RISK IS DEFINED MINIMAL OR ABSENT HISTORY OF SMOKING OR OTHER KNOWN RISK FACTORS. Lanie H, LUCIO Mckeon, ONEIL Saucedo, et al (2017) "Guidelines for Management of Incidental Pulmonary Nodules Detected on CT Images: From the Fleischner Society 2017." Radiology; 284(1): 228-243. doi:10.1148/[email or web address] The adrenal glands and colonic pneumatosis were discussed over the telephone with Dr. Chavez at 1600 hours on May 30, 2017.
[2017-05-30 16:37] LABS: Urine Bacteria Absent (Absent); Urine Bilirubin 1+ (Negative); Urine Glucose Negative (Negative); Urine Nitrite Negative (Negative)
--- NOTE | 2017-05-30 17:19 | ED ---
Facundo Menard Tecjoon, scribed for Amrit Chavez MD on 05/30/17 at 1449 . Abdominal Pain/Male - HPI Summary HPI Summary: This patient is a 57 year old male presenting to [facility] accompanied by with a chief complaint of LLQ abdominal pain since 2 days ago. Patient states pain originated in umbilicus and has since migrated to LLQ abdomen. The pain is rated 9/10. The patient has treated the pain with Colace and an enema prior to arrival. Patient reports generalized weakness. The patient had a fever measured at 101 measured at his doctor's office. Patient denies chills, nausea, diarrhea , vomiting, black stools, bloody stools, cough, SOB, CP, pleuritic CP, and leg pain. The patient has been taking morphine. He had a left knee replacement on . Pt had a DVT in his left lower extremity 3 years ago and is currently on Xarelto. - History of Current Complaint Chief Complaint: EDAbdPain Stated Complaint: SICK/FEVER/RAPID HEARTRATE Time Seen by Provider: 05/30/17 14:36 Hx Obtained From: Patient Onset/Duration: Lasting Days - 2, Still Present Severity Currently: Severe Pain Intensity: 9 Pain Scale Used: 0-10 Numeric Location: Discrete At: LLQ Alleviating Factor(s): Nothing Associated Signs And Symptoms: Positive: Negative - chills, nausea, diarrhea, vomiting, black stools, cough, SOB, leg pain, CP, pleuritic CP, Other - weakness , fever - Allergies/Home Medications Allergies/Adverse Reactions: Allergies Allergy/AdvReac Type Severity Reaction Status Date / Time No Known Allergies Allergy Verified 05/29/17 01:38 PMH/Surg Hx/FS Hx/Imm Hx Previously Healthy: No Endocrine/Hematology History: Reports: Hx Anticoagulant Therapy Denies: Hx Diabetes, Hx Thyroid Disease Cardiovascular History: Reports: Hx Hypercholesterolemia, Hx Hypertension - ON MEDICATION FOR, Other Cardiovascular Problems/Disorders - 2012- LEFT LEG DVT- ON XARELTO-LD 05/13/17 Denies: Hx Pacemaker/ICD Respiratory History: Denies: Hx Asthma, Hx Chronic Obstructive Pulmonary Disease (COPD), Hx Pulmonary Embolism GI History: Reports: Other GI Disorders - hernia Denies: Hx Ulcer History: Denies: Hx Renal Disease Musculoskeletal History: Reports: Hx Arthritis - KNEES Denies: Hx Rheumatoid Arthritis, Hx Osteoporosis Sensory History: Reports: Hx Contacts or Glasses - READERS Denies: Hx Hearing Aid Opthamlomology History: Reports: Hx Contacts or Glasses - READERS Neurological History: Reports: Other Neuro Impairments/Disorders - FAMILIAR TREMORS Psychiatric History: Denies: Hx Panic Disorder - Surgical History Surgery Procedure, Year, and Place: Abdominal hernia- >5 YEARS AGO. Left knee replacement 05/21/17 Hx Anesthesia Reactions: No Infectious Disease History: No Infectious Disease History: Denies: Hx Clostridium Difficile, Hx Hepatitis, Hx Human Immunodeficiency Virus (HIV), Hx of Known/Suspected MRSA, Hx Shingles, Hx Tuberculosis, Hx Known/ Suspected VRE, Hx Known/Suspected VRSA, History Other Infectious Disease, Traveled Outside the [place] in Last 30 Days - Family History Known Family History: Negative: Cardiac Disease, Hypertension, Diabetes - Social History Lives: With Family Alcohol Use: None Substance Use Type: Reports: None Smoking Status (MU): Former Smoker Type: Cigarettes Amount Used/How Often: 8-9 CIGARETTES PER DAY X 27 YEARS OFF AND ON Have You Smoked in the Last Year: No Review of Systems Positive: Fever. Negative: Chills Negative: Chest Pain Negative: Shortness Of Breath, Cough, Other - pleuritic CP Gastrointestinal: Negative - black stools, bloody stools Positive: Abdominal Pain. Negative: Vomiting, Diarrhea, Nausea Musculoskeletal: Negative - leg pain Positive: Weakness All Other Systems Reviewed And Are Negative: Yes Physical Exam Triage Information Reviewed: Yes Vital Signs On Initial Exam: Initial Vitals Temp Pulse Resp BP Pulse Ox 99.4 F 149 37 103/65 88 05/30/17 14:33 05/30/17 14:33 05/30/17 14:33 05/30/17 14:33 05/30/17 14:33 Vital Signs Reviewed: Yes Appearance: Positive: Ill-Appearing Skin: Positive: Warm Head/Face: Positive: Normal Head/Face Inspection Eyes: Positive: EOMI ENT: Positive: Normal ENT inspection Neck: Positive: Nontender Respiratory/Lung Sounds: Positive: Clear to Auscultation, Breath Sounds Present Cardiovascular: Positive: Tachycardia. Negative: Murmur Abdomen Description: Positive: Other: - tender LLQ, no inguinal hernia. Musculoskeletal: Positive: Other - he has sutures in the left knee midline vertical incision; no redness, no drainage, no tenderness, no effusion. The left leg is edematous. No redness or cellulitis. Patient denies pain in left leg. Neurological: Positive: Sensory/Motor Intact, Alert, Oriented to Person Place, Time, CN Intact II-III, Speech Normal. Negative: Disoriented Psychiatric: Positive: Normal - [place] Coma Scale Best Eye Response: 4 - Spontaneous Best Motor Response: 6 - Obeys Commands Best Verbal Response: 5 - Oriented Diagnostics - Vital Signs Vital Signs Temp Pulse Resp BP Pulse Ox 05/30/17 14:33 99.4 F 149 37 103/65 88 - Laboratory Result Diagrams: 05/30/17 14:50 05/30/17 14:50 Lab Statement: Any lab studies that have been ordered have been reviewed, and results considered in the medical decision making process. - Radiology CXR Xray Interpretation: Positive (See Comments) - IMPRESSION: MINIMAL LINEAR ATELECTASIS OF THE LEFT LUNG BASE. ED physician has reviewed this radiology report. Radiology Interpretation Completed By: Radiologist - CT CT Chest/Abd/Pel CT Interpretation: Positive (See Comments) - 1. 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 Please correlate to clinical signs and symptoms of adrenal crisis. 2. Pneumatosis noted in the wall of the colon at the hepatic flexure, a finding that can be seen in the setting of bowel infarction. There are also air-fluid levels throughout the proximal colon indicating diarrheal illness. 3. Pulmonary nodule at the right minor fissure with an average dimension of 5 mm as a morphology most consistent with intrapleural lymph node. If the patient possesses high risk factors for lung cancer, this can be followed up according to the Fleischner Society criteria. Dr. Chavez has viewed this report. CT Interpretation Completed By: Radiologist - EKG 8065 Cardiac Rate: Tachycardia EKG Rhythm: Sinus Tachycardia - 126 BPM EKG Interpretation: Sinus Tachycardia (126 BPM), normal NM, QRS, no STEMI Abdominal Pain Fem Course/Dx - Course Course Of Treatment: 57 yr old male with a couple of days of abdominal pain, post op a little over week for left knee surgery. He has no complaints of knee pain, redness or increased swelling at all. He has tachycardia, fever, bleeding into adrenal glands, possible air in wall of part of colon. I have asked ICU attending, Dr Vasquez to admit; Dr Wang general surgery to consult; Dr Cedeno from ortho to consult/inform Dr Lopez of the patient. The patient is critically ill. Been fluid resuscitated, loaded with zosyn, vanco, and covered with Hydrocortisone for the adrenal glands. Further management per ICU attending and consultants as inpatient. - Diagnoses Provider Diagnoses: Tachycardia, Abdominal pain, left lower quadrant, Hemorrhage of both adrenal glands, Sepsis - Provider Notifications Discussed Care Of Patient With: Jono Vasquez - ICU Time Discussed With Above Provider: 16:19 Instructed by Provider To: Other - We discussed patient care with Dr. Vasquez (ICU ) and they agreed to come see the patient. I also consulted with Dr. Wang, surgery, who will evaluate the patient. I attempted to consult with Dr. Lopez, the patient's orthopedist, but was unable to do so. I consulted with Dr. Gusman , orthopedics, regarding patient care and he will come to see the patient. - Critical Care Time Critical Care Time: 75-104 min Discharge - Discharge Plan Condition: Fair Disposition: ADMITTED TO [facility] Referrals: Blayne Hernández, [Primary Care Provider] - The documentation as recorded by the Facundo das Tecjoon accurately reflects the service I personally performed and the decisions made by me, Amrit Chavez MD.
--- NOTE | 2017-05-30 17:27 | RAD ---
INDICATION: Pain and swelling. Edema post knee surgery. COMPARISON: May 10, 2014 TECHNIQUE: Duplex interrogation of the Lowerextremity was performed. FINDINGS: Deep veins: The common femoral, great saphenous, profunda femoris, proximal, mid, and distal deep femoral, popliteal, posterior tibial, and peroneal veins were interrogated. There is thrombus within the popliteal vein and one of the paired posterior tibial abnormality. Peroneal veins. There is otherwise normal compressibility, augmentation, and phasic flow. Superficial veins: There are no findings of superficial thrombophlebitis. Popliteal fossa:There is no evidence of a popliteal cyst. Soft tissues: There is edema. IMPRESSION: POPLITEAL AND TIBIAL DEEP VENOUS THROMBOSIS.
--- NOTE | 2017-05-30 17:31 | RAD ---
INDICATION: Elevated liver function studies. Acute, bilateral adrenal hemorrhage COMPARISON: CT May 30, 2017 TECHNIQUE: Longitudinal and transverse scans of the right upper quadrant were obtained. Doppler interrogation of the hepatic and portal venous system was performed. FINDINGS: Liver: There is hepatomegaly with hepatic steatosis. There are no masses . The liver measures 17.6 cm in cephalocaudal dimension. Vessels: There is normal hepatic and portal venous flow. Bile ducts: There is no evidence of intrahepatic or extrahepatic ductal dilatation. The common duct measures 0.3 cm. Gallbladder: There is a small amount of biliary sludge. The sonographic appearance of the gallbladder is otherwise normal. There is no evidence of cholelithiasis, thickening of the gallbladder wall, or pericholecystic fluid. Pancreas: The visualized pancreas appears normal Right kidney: The right kidney is normal in size and echogenicity. There are no masses or calculi. There is no evidence of hydronephrosis. The right kidney measures 11.3 x 5.4 x 6.4 cm. IVC and aorta: The aorta and superior vena cava appear normal. Fluid: There is no ascites. Other: None. IMPRESSION: HEPATIC STEATOSIS. SMALL AMOUNT OF BILIARY SLUDGE.
--- NOTE | 2017-05-30 18:12 | HP ---
H&P (Free Text) History and Physical: History and Physical - Critical Care Requesting Physician: Dr Amrit Chavez Reason for admission: sepsis, hypotension, adrenal hemorrhage Limitations in history/physical: none, mild tachypnea; history from also. Date of admission: 05/30/2017 HPI: 57y M pmhx of left leg DVT on AC, HTN; recently had left knee surgery and discharged on 05/21, continued rivaroxaban po after discharge. Developed abdominal pain on Saturday (2 days back), which radiated to left lower quadrant. Denies nausea/vom. No diarrhea, but constipated+. Took laxative but no benefit. No fevers/chills at home. Went to urgent care center with and rememebers bp may have been low initially but said he was okay to go home. She then went to doctors office, found to have elevated temp. Referred to the ER. In ER, found to have temp 103.1, tachycardic 120s, tachypneic 20-30s, BP 100s, lowest was 90s. CT abd done demonstrating bilateral adrenal hemorrhage and some small amounts of air in the colonic wall (pneumatosis) at hepatic flexure. CXR with mild atelectasis only, no acute infiltrate otherwise noted. Duplex of legs left leg DVT popliteal/tibial vein+ US abd hepatic steatosis and small biliary sludge+. Given IVF NS 4-5 liters in ER, BP stable 100-110s, tachycardic. He denies pain now. Awake/alert. No pressors started. Given hydrocortisone 100mg iv x1. Zosyn IV for sepsis coverage. ROS: negative except for pertinent positives mentioned above. PMHx: left leg DVT on AC, HTN, familial tremor, BPH? PSHx: abdominal hernia repair, left knee replacement 05/21/2017 Family History: none Social History: Alcohol-none, Smoking-former smoker ppd for 27yrs, Drug use- none; family lives with Allergies: Allergies Allergy/AdvReac Type Severity Reaction Status Date / Time No Known Allergies Allergy Verified 05/29/17 01:38 Home Medications: Rivaroxaban TAB(*) [Xarelto 20 mg] 20 mg PO 0830 02/08/15 [History Confirmed ] Tamsulosin CAP* [Flomax CAP*] 0.4 mg PO 0830 09/19/16 [History Confirmed ] Propranolol TAB* [Inderal TAB*] 20 mg PO 0830 05/13/17 [History Confirmed ] Morphine TAB Extended Rel(*) [Ms Contin(*)] 30 mg PO Q12H PRN #14 tab.er MDD 2 05/23/17 [Rx Confirmed 05/30/17] oxyCODONE/Acetamin 5/325 MG* [Percocet 5/325 TAB*] 2 tab PO Q4H PRN tab MDD 10 05/23/17 [Rx Confirmed 05/30/17] Tele: sinus tachycardia Vitals: Vital Signs Temp 102.4 F 05/30/17 17:59 Pulse 119 05/30/17 17:59 Resp 25 05/30/17 17:59 BP 120/68 05/30/17 17:59 Pulse Ox 95 05/30/17 17:59 Intake & Output 05/29/17 05/30/17 05/30/17 18:59 06:59 18:59 Intake Total 3230 Output Total 150 Balance 3080 Weight 230 lb Intake: IV Fluids 3130 IVPB 100 Output: Ruiz 150 O2/Vent: RA< sat 96%, rr 25-30 Infusions: NS Current Medications: Hydrocortisone Sodium Succinate (Solu-Cortef*) [address] Piperacillin Sod/Tazobactam (Sod 3.375 gm/ Sodium Chloride) 100 mls @ 25 mls/ hr IVPB Q8H [facility] Pharmacy Consult (Vancomycin Per Pharmacy*) 1 note FOLLOW UP .VANC PER PHARMACY [facility] Physical Exam: General: awake, alert, mild tachypnea, no acc muscle use, no diaphoresis Head: normocephalic, atraumatic HEENT: no pallor, no icterus, moist mucous membranes Neck: soft, supple, no jvd, no stridor CVS: tachycardic, regular, no murmur Resp: bilateral air entry, no rhales, no wheeze, no rhonchi, no acc muscle use Abdomen: soft, nontender, nondistended, BS+ Ext: pulses+, warm++,; left knee surgical site intact with mild edema but no erythema/tenderness; left calf not much swollen. Skin: intact, no breakdown, no dryness Neuro: awake, alert, orientedx3, moving all extremities, no gross focal deficit Labs: Laboratory Results - last 24 hr 05/30/17 05/30/17 05/30/17 14:50 14:50 14:50 WBC 12.9 H RBC 4.08 Hgb 11.9 L Hct 35 L MCV 86 MCH 29 MCHC 34 RDW 14 Plt Count 90 L D MPV 7 L Neut % (Auto) 75.1 Lymph % (Auto) 14.5 L [place] % (Auto) 8.6 Eos % (Auto) 1.1 Baso % (Auto) 0.7 Absolute Neuts (auto) 9.7 H Absolute Lymphs (auto) 1.9 Absolute Monos (auto) 1.1 H Absolute Eos (auto) 0.1 Absolute Basos (auto) 0.1 Absolute Nucleated RBC 0.01 Nucleated RBC % 0.1 INR (Anticoag Therapy) 2.16 H APTT 33.7 Sodium 131 L Potassium 3.6 Chloride 96 L Carbon Dioxide 25 Anion Gap 10 BUN 21 Creatinine 1.94 H Est GFR ( Amer) 45.9 Est GFR (Non-Af Amer) 35.7 BUN/Creatinine Ratio 10.8 Glucose 107 H Lactic Acid Calcium 9.5 Total Bilirubin 3.00 H D AST 43 H ALT 54 H Alkaline Phosphatase 67 Troponin I 0.33 H* C-Reactive Protein 194.34 H Total Protein 7.7 Albumin 3.8 Globulin 3.9 Albumin/Globulin Ratio 1.0 Urine Color Urine Appearance Urine pH Ur Specific [place] Urine Protein Urine Ketones Urine Blood Urine Nitrate Urine Bilirubin Urine Urobilinogen Ur Leukocyte Esterase Urine WBC (Auto) Urine RBC (Auto) Ur Squamous Epith Cells Urine Bacteria Hyaline Casts Urine Glucose Influenza A (Rapid) Influenza B (Rapid) Blood Type Antibody Screen 05/30/17 05/30/17 05/30/17 14:50 14:50 15:07 WBC RBC Hgb Hct MCV MCH MCHC RDW Plt Count MPV Neut % (Auto) Lymph % (Auto) [place] % (Auto) Eos % (Auto) Baso % (Auto) Absolute Neuts (auto) Absolute Lymphs (auto) Absolute Monos (auto) Absolute Eos (auto) Absolute Basos (auto) Absolute Nucleated RBC Nucleated RBC % INR (Anticoag Therapy) APTT Sodium Potassium Chloride Carbon Dioxide Anion Gap BUN Creatinine Est GFR ( Amer) Est GFR (Non-Af Amer) BUN/Creatinine Ratio Glucose Lactic Acid 2.0 Calcium Total Bilirubin AST ALT Alkaline Phosphatase Troponin I C-Reactive Protein Total Protein Albumin Globulin Albumin/Globulin Ratio Urine Color Urine Appearance Urine pH Ur Specific [place] Urine Protein Urine Ketones Urine Blood Urine Nitrate Urine Bilirubin Urine Urobilinogen Ur Leukocyte Esterase Urine WBC (Auto) Urine RBC (Auto) Ur Squamous Epith Cells Urine Bacteria Hyaline Casts Urine Glucose Influenza A (Rapid) Negative Influenza B (Rapid) Negative Blood Type A Positive Antibody Screen Negative 05/30/17 15:52 WBC RBC Hgb Hct MCV MCH MCHC RDW Plt Count MPV Neut % (Auto) Lymph % (Auto) [place] % (Auto) Eos % (Auto) Baso % (Auto) Absolute Neuts (auto) Absolute Lymphs (auto) Absolute Monos (auto) Absolute Eos (auto) Absolute Basos (auto) Absolute Nucleated RBC Nucleated RBC % INR (Anticoag Therapy) APTT Sodium Potassium Chloride Carbon Dioxide Anion Gap BUN Creatinine Est GFR ( Amer) Est GFR (Non-Af Amer) BUN/Creatinine Ratio Glucose Lactic Acid Calcium Total Bilirubin AST ALT Alkaline Phosphatase Troponin I C-Reactive Protein Total Protein Albumin Globulin Albumin/Globulin Ratio Urine Color [place] Urine Appearance Cloudy Urine pH 5.0 Ur Specific [place] 1.026 Urine Protein 1+(30 mg/dl) H Urine Ketones Negative Urine Blood 1+ H Urine Nitrate Negative Urine Bilirubin 1+ Urine Urobilinogen Positive H Ur Leukocyte Esterase Negative Urine WBC (Auto) 1+(6-10/hpf) H Urine RBC (Auto) 2+(6-10/hpf) H Ur Squamous Epith Cells Present H Urine Bacteria Absent Hyaline Casts Present H Urine Glucose Negative Influenza A (Rapid) Influenza B (Rapid) Blood Type Antibody Screen Imaging: Reviewed CT abd 05/31- bilateral adrenal hemorrhage and some small amounts of air in the colonic wall (pneumatosis) at hepatic flexure. CXR 05/31 - mild atelectasis only, no acute infiltrate otherwise noted. Duplex of legs 05/31 left leg DVT popliteal/tibial vein+ US abd 05/31 hepatic steatosis and small biliary sludge+. Assessment: 57y M pmhx of left leg DVT on AC, HTN; recently had left knee surgery and discharged on 05/21, continued rivaroxaban po after discharge. Developed abdominal pain on Saturday (2 days back), which radiated to left lower quadrant. In ER, found to be febrile, tachycardic, tachypneic, borderline BP 90- 100s, with elevated WBC, bilateral adrenal hemorrhage and LIVIA. -Severe Sepsis, unclear source -Acute respiratory distress 2/2 to metabolic demand -Bilateral adrenal hemorrhage; r/o adrenal insufficiency/crisis -Coagulopathy 2/2 to sepsis -LIVIA, pre-renal +/- hypotension +/- septic ATN -colonic pneumatosis -left leg popliteal/tibial DVT, chronic? Plan: Neuro- stable, tired appearing but responds well. Delirium prec. Asp prec. CVS- soft BP, no clear hypotension. Given sepsis IVF bolus. LA 2, repeat every 3h till negative. Follow urine output. Noted adrenal hemorrhage, at high risk for adrenal insufficiency/crisis, s/p hydrocortisone x1 100mg iv. Start hydrocortisone 100mg iv q8h. possible central line. Blood culturesx2. Empiric abx. Unclear source at this time. Check CVP, IVF hydration as needed. Holding AC due to coagulopathy.. Resp- on RA, tachypneic. Sat 96%. Likely 2/2 to metabolic acidosis. May need NIV support. CXR without clear focal infiltrate. ID- febrile tmax 103, wbc 12.9, SIRS criteria+. Unclear source, urinalysis abnormal. Send urine culture. Blood cultures. Cxr clear. Left leg surgical site wound intact, nontender and no drainage. Abdominal source of fever from hemorrhage? From colon? Possible ischemic colitis? Empiric coverage for GI source, urinary source; cont zosyn. IV steroids to be started. GI- NPO. CT findings reviewed. Surgery reviewed images, not very sure this is true ischemic bowel. Will trend LA. Follow abd exam. May need repeat CT again, contrast if LIVIA improved? Noted Bili 3, RUQ USG without GB dilatation or CBD obstruction commented. Renal- noted LIVIA, multifactorial septic atn/hypotension/pre-renal. IVF NS bolus. IVF NS infusion as needed. Ruiz in place. Pressors as needed. Urine culture. Heme- hg stable. Plt stable. Coagulopathy with INR >2 in setting of Rivaroxaban therapy. Likely INR increased due to sepsis and organ dysfunction. No bleeding. May need FFP to reverse if bleeding. Hold rivaroxaban but it may be in system due to LIVIA. Noted left leg DVT. Check DIC panel, though plt are okay. Endo- noted adrenal hemorrhage, may be 2/2 to sepsis. Support therapy with Steroids, hydrocortisone 100mg q8h. IVF, pressors. Will treat for adrenal insuff /crisis in setting of sepsis. Musculsk- bedrest. Noted left leg DVT on duplex; holding AC for now given coagulopathy/LIVIA. Wounds- left leg wound care; intact surgical site. Consult ortho to review leg. Nutrition- cardiac diet. Antiemetics prn. Pain meds prn. DVT prophylaxis: right leg SCD only; hold AC due to coagulopathy. GI prophylaxis: pepcid Central Line: - Arterial Line: - Ruiz Cathetor: yes Disposition: admit to ICU for severe sepsis, adrenal hemorrhage anticipated length of stay >2 midnights discussed case with at bedside, about current medical conditions and status. Code Status: full code Total Critical Care time is 60 minutes, excluding procedures/teaching Jono Vasquez MD Complaint Specialist (Electronically Signed)
[2017-05-30] MEDS ORDERED: Vancomycin per Pharmacy* NOTE FOLLOW UP SCH (19:00)
[2017-05-30] MEDS: Piperacillin/Tazobac ADVAN(*) 3.375 GM in NS 0.9% 100 ML* 100 ML IVPB SCH (19:50)
[2017-05-30] MEDS ORDERED: Lidocaine 1% INJ* 10 MG/ML 30 ML SDV ONE (20:08)
[2017-05-30] MEDS ORDERED: oxyCODONE/Acetamin 5/325 MG* TAB PO PRN ×2 (22:10)
[2017-05-30 22:20] LABS: Add Path Review? NO
[2017-05-30 22:40] LABS: Body Fluid Appearance Bloody; Body Fluid Total Cells Counted 100
[2017-05-30 22:42] LABS: Body Fluid WBC 18735 /mcL
[2017-05-30] MEDS: NS 0.9% 1000 ML* 1,000 ML IV SCH (23:13)
[2017-05-31] MEDS: Hydrocortisone INJ* 100 MG VIAL IV SCH ×4 (00:01→23:51)
[2017-05-31] MEDS: Vancomycin(*) 750 MG in NS 0.9% 250 ML* 250 ML IVPB SCH ×2 (00:01→08:46)
[2017-05-31] MEDS: Piperacillin/Tazobac ADVAN(*) 3.375 GM in NS 0.9% 100 ML* 100 ML IVPB SCH ×3 (03:23→18:25)
--- NOTE | 2017-05-31 07:41 | PN ---
Progress Note - Progress Note Date of Service: 05/31/17 SOAP: Subjective: Pt. is alert, reports fatigue, denies abdom pain, cp, denies drainage or pain L knee. Objective: Vital Signs: Temp Pulse Resp BP Pulse Ox 99.5 F 82 24 132/86 98 05/31/17 07:00 05/31/17 07:00 05/31/17 07:00 05/31/17 07:00 05/31/17 07:00 Laboratory Results - last 24 hr 05/30/17 05/30/17 05/30/17 14:50 14:50 14:50 WBC 12.9 H RBC 4.08 Hgb 11.9 L Hct 35 L MCV 86 MCH 29 MCHC 34 RDW 14 Plt Count 90 L D MPV 7 L Neut % (Auto) 75.1 Lymph % (Auto) 14.5 L Cassia % (Auto) 8.6 Eos % (Auto) 1.1 Baso % (Auto) 0.7 Absolute Neuts (auto) 9.7 H Absolute Lymphs (auto) 1.9 Absolute Monos (auto) 1.1 H Absolute Eos (auto) 0.1 Absolute Basos (auto) 0.1 Absolute Nucleated RBC 0.01 Nucleated RBC % 0.1 INR (Anticoag Therapy) 2.16 H APTT 33.7 Sodium 131 L Potassium 3.6 Chloride 96 L Carbon Dioxide 25 Anion Gap 10 BUN 21 Creatinine 1.94 H Est GFR ( Amer) 45.9 Est GFR (Non-Af Amer) 35.7 BUN/Creatinine Ratio 10.8 Glucose 107 H Lactic Acid Calcium 9.5 Total Bilirubin 3.00 H D AST 43 H ALT 54 H Alkaline Phosphatase 67 Troponin I 0.33 H* C-Reactive Protein 194.34 H Total Protein 7.7 Albumin 3.8 Globulin 3.9 Albumin/Globulin Ratio 1.0 Urine Color Urine Appearance Urine pH Ur Specific [place] Urine Protein Urine Ketones Urine Blood Urine Nitrate Urine Bilirubin Urine Urobilinogen Ur Leukocyte Esterase Urine WBC (Auto) Urine RBC (Auto) Ur Squamous Epith Cells Urine Bacteria Hyaline Casts Urine Glucose Fluid Source Fluid Volume Fluid Color Fluid Appearance Fluid WBC Fluid RBC Fluid Tot Cell Count Fluid Neutrophils Fluid Band Neutrophils Fluid Monocytes Fluid Crystals Influenza A (Rapid) Influenza B (Rapid) Blood Type Antibody Screen 05/30/17 05/30/17 05/30/17 14:50 14:50 15:07 WBC RBC Hgb Hct MCV MCH MCHC RDW Plt Count MPV Neut % (Auto) Lymph % (Auto) Cassia % (Auto) Eos % (Auto) Baso % (Auto) Absolute Neuts (auto) Absolute Lymphs (auto) Absolute Monos (auto) Absolute Eos (auto) Absolute Basos (auto) Absolute Nucleated RBC Nucleated RBC % INR (Anticoag Therapy) APTT Sodium Potassium Chloride Carbon Dioxide Anion Gap BUN Creatinine Est GFR ( Amer) Est GFR (Non-Af Amer) BUN/Creatinine Ratio Glucose Lactic Acid 2.0 Calcium Total Bilirubin AST ALT Alkaline Phosphatase Troponin I C-Reactive Protein Total Protein Albumin Globulin Albumin/Globulin Ratio Urine Color Urine Appearance Urine pH Ur Specific [place] Urine Protein Urine Ketones Urine Blood Urine Nitrate Urine Bilirubin Urine Urobilinogen Ur Leukocyte Esterase Urine WBC (Auto) Urine RBC (Auto) Ur Squamous Epith Cells Urine Bacteria Hyaline Casts Urine Glucose Fluid Source Fluid Volume Fluid Color Fluid Appearance Fluid WBC Fluid RBC Fluid Tot Cell Count Fluid Neutrophils Fluid Band Neutrophils Fluid Monocytes Fluid Crystals Influenza A (Rapid) Negative Influenza B (Rapid) Negative Blood Type A Positive Antibody Screen Negative 05/30/17 05/30/17 05/30/17 15:52 20:45 21:07 WBC RBC Hgb Hct MCV MCH MCHC RDW Plt Count MPV Neut % (Auto) Lymph % (Auto) Cassia % (Auto) Eos % (Auto) Baso % (Auto) Absolute Neuts (auto) Absolute Lymphs (auto) Absolute Monos (auto) Absolute Eos (auto) Absolute Basos (auto) Absolute Nucleated RBC Nucleated RBC % INR (Anticoag Therapy) APTT Sodium Potassium Chloride Carbon Dioxide Anion Gap BUN Creatinine Est GFR ( Amer) Est GFR (Non-Af Amer) BUN/Creatinine Ratio Glucose Lactic Acid 1.3 Calcium Total Bilirubin AST ALT Alkaline Phosphatase Troponin I C-Reactive Protein Total Protein Albumin Globulin Albumin/Globulin Ratio Urine Color [place] Urine Appearance Cloudy Urine pH 5.0 Ur Specific [place] 1.026 Urine Protein 1+(30 mg/dl) H Urine Ketones Negative Urine Blood 1+ H Urine Nitrate Negative Urine Bilirubin 1+ Urine Urobilinogen Positive H Ur Leukocyte Esterase Negative Urine WBC (Auto) 1+(6-10/hpf) H Urine RBC (Auto) 2+(6-10/hpf) H Ur Squamous Epith Cells Present H Urine Bacteria Absent Hyaline Casts Present H Urine Glucose Negative Fluid Source Oth Fluid Volume 4 Fluid Color Red Fluid Appearance Bloody Fluid WBC 36146 Fluid RBC 55871 Fluid Tot Cell Count 100 Fluid Neutrophils 94 Fluid Band Neutrophils 5 Fluid Monocytes 1 Fluid Crystals Influenza A (Rapid) Influenza B (Rapid) Blood Type Antibody Screen 05/30/17 05/30/17 21:07 22:30 WBC RBC Hgb Hct MCV MCH MCHC RDW Plt Count MPV Neut % (Auto) Lymph % (Auto) Cassia % (Auto) Eos % (Auto) Baso % (Auto) Absolute Neuts (auto) Absolute Lymphs (auto) Absolute Monos (auto) Absolute Eos (auto) Absolute Basos (auto) Absolute Nucleated RBC Nucleated RBC % INR (Anticoag Therapy) APTT Sodium Potassium Chloride Carbon Dioxide Anion Gap BUN Creatinine Est GFR ( Amer) Est GFR (Non-Af Amer) BUN/Creatinine Ratio Glucose Lactic Acid Calcium Total Bilirubin AST ALT Alkaline Phosphatase Troponin I 0.29 H* C-Reactive Protein Total Protein Albumin Globulin Albumin/Globulin Ratio Urine Color Urine Appearance Urine pH Ur Specific [place] Urine Protein Urine Ketones Urine Blood Urine Nitrate Urine Bilirubin Urine Urobilinogen Ur Leukocyte Esterase Urine WBC (Auto) Urine RBC (Auto) Ur Squamous Epith Cells Urine Bacteria Hyaline Casts Urine Glucose Fluid Source Fluid Volume Fluid Color Fluid Appearance Fluid WBC Fluid RBC Fluid Tot Cell Count Fluid Neutrophils Fluid Band Neutrophils Fluid Monocytes Fluid Crystals None seen Influenza A (Rapid) Influenza B (Rapid) Blood Type Antibody Screen General - pt. is in bed, nad, a & o x 3, pleasant mood. Abdom - ntnd LLE - inc healing well, no sig effusion, no erythema, distally nvi. calf soft and compressible. Assessment: 57 yo M 2 wks s/p LTKA with adrenal hemorrhage and sepsis Plan: appreciate ICU care L knee does NOT appear to be infected, low suspicion for infection - no plan for washout at this time Medical care for adrenal and sepsis Afebrile - IV abx Ortho to follow
[2017-05-31 08:52] LABS: Hematocrit 30 % (42-52); Mean Corpuscular HGB Conc 33 g/dl (31-36); Mean Corpuscular Hemoglobin 29 pg (27-31); Mean Corpuscular Volume 87 fL (80-94); Mean Platelet Volume 7 um3 (7.4-10.4); Red Blood Count 3.48 10^6/ul (4.0-5.4); Red Cell Distribution Width 14 % (10.5-15); White Blood Count 10.9 10^3/ul (3.5-10.8)
[2017-05-31 08:53] LABS: Comments Flag Yes
[2017-05-31 09:05] LABS: Albumin 2.8 g/dL (3.2-5.2); BUN/Creatinine Ratio 14.7 (8-20); EGFR African American 73.6 (>60); EGFR Non-African American 57.2 (>60); Globulin 3.1 g/dL (2-4); Magnesium 2.1 mg/dL (1.9-2.7); Phosphorus 4.4 mg/dL (2.5-5.0); Potassium 4.4 mmol/L (3.5-5.0); Total Bilirubin 1.2 mg/dL (0.2-1.0); Total Protein 5.9 g/dL (6.4-8.9)
[2017-05-31 09:10] LABS: Troponin I 0.18 ng/mL (<0.04)
[2017-05-31] MEDS: NS 0.9% 1000 ML* 1,000 ML IV SCH (09:10)
--- NOTE | 2017-05-31 11:26 | PN ---
Progress Note - Progress Note Date of Service: 05/31/17 Note: CRITICAL CARE MEDICINE Date: 05/31/17 Time: 850 SUBJECTIVE: Patient seen and examined. feels better. denies abd pain, back pain , sob PHYSICAL EXAM: Vital Signs: Reviewed. Neurologic: communicating well HEENT: pupils equal. Sclera mild icteric. Trachea midline. Cardiovascular: S1 S2 Respiratory: ctab Abdomen: Soft, nt. may be a touch distended. Extremities: Warm. LABS: Reviewed. IMAGING: Reviewed. MEDICATIONS: Reviewed. ASSESSMENT: 57 M B/l Adrenal crisis sec to hemorrhage sec to xeralto use Post left TKA Tx on admission for sepsis - but so far, no septic source and if current cx remain neg, sepsis to be r/o in favor of adrenal crisis alone PLAN: doing well. looks as if this may just be adrenal crisis sec to hemorrhage sec to xeralto use without any infectious signs otherwise. to be safe, given the red leonardo perphaps of his large bowel concern for pneumontosis and presenting abd pain and dyanmics, will leave on zosyn today and f/u. If cx neg, would dc zosyn and r /o sepsis and his adrenal crisis would link all his symptomotology. Need to f/u plt but no need for transfusion anticipated. If still dropping can consider heme input. Hb stable. po. oob. pt prn. ortho following knee Supportive and preventative care as ordered. SUP: po VTE prophylaxis: hold anticoags and use scds Ruiz catheter dcd Disposition: floor Code Status: Full Critical Care Time: 25min Jude Valentine DO
[2017-05-31] MEDS ORDERED: Vancomycin Trough Check NOTE FOLLOW UP ONE (16:30)
--- NOTE | 2017-05-31 17:32 | PN ---
Progress Note - Progress Note Date of Service: 05/31/17 SOAP: History: I saw the patient last night in PACU. Had increased warmth and mild-moderate effusion left knee. Temperature of 103 degrees. I had a low, but real suspicion of infection left TKA. Therefore, performed aspiration left knee. Verbal consent, sterile technique, tolerated well. Injected ~ 10cc lidocaine in subQ tissue about knee. 10 minutes later, I aspirated fluid from knee, ~ 20cc. Bloody, red-brown. Consistent with hematoma and not infection. Sent to lab for analysis. Objective: Selected Entries 05/31/17 05/31/17 05/31/17 11:50 16:00 16:07 Temperature 99.4 F 100.3 F Heart Rate 95 Respiratory 25 Rate Blood Pressure 123/80 (mmHg) O2 Sat by Pulse 96 Oximetry Laboratory Tests 05/30/17 05/30/17 05/30/17 14:50 14:50 15:52 WBC 12.9 H Troponin I 0.33 H* C-Reactive Protein 194.34 H Urine Nitrate Negative Ur Leukocyte Esterase Negative Urine WBC (Auto) 1+(6-10/hpf) H Fluid Source Fluid Volume Fluid Color Fluid Appearance Fluid WBC Fluid RBC Fluid Tot Cell Count Fluid Neutrophils Fluid Band Neutrophils Fluid Monocytes Fluid Cell Count Rvw By Fluid Crystals 05/30/17 05/30/17 05/30/17 21:07 21:07 22:30 WBC Troponin I 0.29 H* C-Reactive Protein Urine Nitrate Ur Leukocyte Esterase Urine WBC (Auto) Fluid Source Oth Fluid Volume 4 Fluid Color Red Fluid Appearance Bloody Fluid WBC 38939 Fluid RBC 54465 Fluid Tot Cell Count 100 Fluid Neutrophils 94 Fluid Band Neutrophils 5 Fluid Monocytes 1 Fluid Cell Count Rvw By Fluid Crystals None seen 05/31/17 05/31/17 08:00 08:35 WBC 10.9 H Troponin I 0.18 H* C-Reactive Protein Urine Nitrate Ur Leukocyte Esterase Urine WBC (Auto) Fluid Source Fluid Volume Fluid Color Fluid Appearance Fluid WBC Fluid RBC Fluid Tot Cell Count Fluid Neutrophils Fluid Band Neutrophils Fluid Monocytes Fluid Cell Count Rvw By Fluid Crystals Assessment: POD [address] Lopez HD 2 Adrenal crisis secondary to hemorrhage Plan: - No sign of infection left knee by aspirate laboratory analysis - Medical manage of presumed adrenal crisis - Patient seen by Dr. Lopez today
[2017-05-31] MEDS: Acetaminophen TAB* 325 MG PO PRN (23:56)
[2017-06-01] MEDS: Piperacillin/Tazobac ADVAN(*) 3.375 GM in NS 0.9% 100 ML* 100 ML IVPB SCH (03:24)
[2017-06-01] MEDS: Hydrocortisone INJ* 100 MG VIAL IV SCH ×2 (05:34→13:08)
[2017-06-01 06:50] LABS: Hematocrit 27 % (42-52); Hemoglobin 9.2 g/dl (14.0-18.0); Mean Corpuscular HGB Conc 34 g/dl (31-36); Mean Corpuscular Hemoglobin 29 pg (27-31); Mean Corpuscular Volume 85 fL (80-94); Mean Platelet Volume 8 um3 (7.4-10.4); Red Blood Count 3.17 10^6/ul (4.0-5.4); Red Cell Distribution Width 14 % (10.5-15); White Blood Count 11.7 10^3/ul (3.5-10.8)
[2017-06-01 06:51] LABS: Comments Flag Yes
[2017-06-01 07:11] LABS: Albumin 2.8 g/dL (3.2-5.2); EGFR African American 98.7 (>60); EGFR Non-African American 76.7 (>60); Globulin 3.1 g/dL (2-4); Potassium 3.7 mmol/L (3.5-5.0); Total Bilirubin 0.8 mg/dL (0.2-1.0); Total Protein 5.9 g/dL (6.4-8.9)
--- NOTE | 2017-06-01 08:28 | PN ---
Progress Note - Progress Note Date of Service: 06/01/17 SOAP: Subjective: Pt. is feeling better, would like a shower. L knee without pain. Objective: LLE - sutures removed- inc c/d/i. no effusion, no erythema or drainage. 0-90 flexion. distally calf soft and nvi. Vital Signs: Temp Pulse Resp BP Pulse Ox 97.6 F 94 22 133/87 95 06/01/17 03:54 06/01/17 03:54 06/01/17 03:54 06/01/17 03:54 06/01/17 03:54 Laboratory Results - last 24 hr 05/30/17 05/30/17 05/31/17 14:50 21:07 08:00 WBC RBC Hgb Hct MCV MCH MCHC RDW Plt Count MPV Hem Pathologist Commnt INR (Anticoag Therapy) Sodium Potassium Chloride Carbon Dioxide Anion Gap BUN Creatinine Est GFR ( Amer) Est GFR (Non-Af Amer) BUN/Creatinine Ratio Glucose Calcium Phosphorus Magnesium Total Bilirubin AST ALT Alkaline Phosphatase Troponin I Total Protein Albumin Globulin Albumin/Globulin Ratio Fluid Cell Count Rvw By Random Vancomycin 8.8 05/31/17 05/31/17 06/01/17 08:00 08:35 06:39 WBC 10.9 H 11.7 H RBC 3.48 L 3.17 L Hgb 10.0 L 9.2 L Hct 30 L 27 L MCV 87 85 MCH 29 29 MCHC 33 34 RDW 14 14 Plt Count 50 L 44 L MPV 7 L 8 Hem Pathologist Commnt INR (Anticoag Therapy) Sodium 134 Potassium 4.4 Chloride 104 Carbon Dioxide 23 Anion Gap 7 BUN 19 Creatinine 1.29 H Est GFR ( Amer) 73.6 Est GFR (Non-Af Amer) 57.2 BUN/Creatinine Ratio 14.7 Glucose 120 H Calcium 8.0 L Phosphorus 4.4 Magnesium 2.1 Total Bilirubin 1.20 H D AST 28 ALT 38 Alkaline Phosphatase 52 Troponin I 0.18 H* Total Protein 5.9 L Albumin 2.8 L Globulin 3.1 Albumin/Globulin Ratio 0.9 L Fluid Cell Count Rvw By Random Vancomycin 06/01/17 06/01/17 06:39 06:39 WBC RBC Hgb Hct MCV MCH MCHC RDW Plt Count MPV Hem Pathologist Commnt INR (Anticoag Therapy) 1.19 H Sodium 134 Potassium 3.7 Chloride 104 Carbon Dioxide 22 Anion Gap 8 BUN 22 Creatinine 1.00 Est GFR ( Amer) 98.7 Est GFR (Non-Af Amer) 76.7 BUN/Creatinine Ratio 22.0 H Glucose 143 H Calcium 8.0 L Phosphorus Magnesium Total Bilirubin 0.80 AST 83 H ALT 78 H Alkaline Phosphatase 51 Troponin I Total Protein 5.9 L Albumin 2.8 L Globulin 3.1 Albumin/Globulin Ratio 0.9 L Fluid Cell Count Rvw By Random Vancomycin Assessment: 57 YO M wih adrenal bleed sec to blood thinner. 2 wks s/p LTKA Plan: micro from L knee aspiration negative - will follow appreciate medicine/hospitalist care sutures removed nursing to shower pt. today d/c plan per medicine - ortho stable for d/c
[2017-06-01] MEDS: Acetaminophen TAB* 325 MG PO PRN (10:39)
--- NOTE | 2017-06-01 15:53 | PN ---
Subjective Date of Service: 06/01/17 Interval History: This is a 57 yo male with a recent total knee replacement, HTN and h/o prior LE DVT following a soft tissue injury who presented with c/o abd pain and fever. CT imaging demonstrated bilateral adrenal hemorrhage and symptoms consistent with adrenal crisis. He was admitted to ICU, initially with concern for sepsis. Knee was determined not to be infected, blood cultures negative and symptoms appeared to be a result of adrenal crisis rather than sepsis. Regarding his history of DVT, patient had one prior DVT following a soft tissue injury several years ago. No h/o PE or known clotting disorder. Patient had been maintained on anticoagulation for several years, which was interrupted for recent TKA with Dr Lopez. Today, patient denies abd pain, n/v. Pain is well controlled in his knee. No CP or SOB. Objective Active Medications: Acetaminophen (Tylenol Tab*) 650 mg PO Q6H PRN PRN Reason: FEVER/PAIN Last Admin: 06/01/17 10:39 Dose: 650 mg Oxycodone/Acetaminophen (Percocet 5/325 Tab*) 1 tab PO Q4H PRN PRN Reason: PAIN Oxycodone/Acetaminophen (Percocet 5/325 Tab*) 2 tab PO Q4H PRN PRN Reason: PAIN - SEVERE Last Admin: 05/31/17 06:46 Dose: 2 tab Prednisone (Deltasone Tab*) [address] Vital Signs: Temp Pulse Resp BP Pulse Ox 97.6 F 94 22 133/87 95 06/01/17 03:54 06/01/17 03:54 06/01/17 03:54 06/01/17 03:54 06/01/17 03:54 Oxygen Devices in Use Now: None Appearance: Mildly ill appearing in NAD. Accompanied by his . Respiratory: Symmetrical Chest Expansion and Respiratory Effort, Clear to Auscultation Cardiovascular: NL Sounds; No Murmurs; No JVD, RRR Abdominal: NL Sounds; No Tenderness; No Distention Extremities: - - LLE is mildly edematous Skin: - - healing L knee incision, no surrounding erythema or drainage Neurological: Alert and Oriented x 3 Result Diagrams: 06/01/17 06:39 06/01/17 06:39 Microbiology and Other Data: Microbiology 05/30/17 21:07 Gram Stain - Final Body Fluid Body Fluid Culture - Preliminary No Growth Day 2 Skin and Soft Tissue MRSA/MSSA (PCR - Final Mrsa Negative S.aureus Negative 05/30/17 18:00 Nasal Screen MRSA (PCR)(BEN) - Final Nasal Mrsa Negative Assess/Plan/Problems-Billing Assessment: This is a 57 yo gentleman with recent TKA, HTN and h/o DVT chronically anticoagulated with Xarelto who presented with high fever and tachycardia with abd pain found to have bilateral adrenal hemorrhage and associated adrenal crisis. - Patient Problems (1) Adrenal crisis Comment: Now stable Presenting symptoms of fever and tachycardia likely due to adrenal crisis as opposed to sepsis, blood cultures neg and patient improved quickly with corticosteroids Now hemodynamically stable Stop hydrocortisone and start prednisone 20 mg with plans to continue for a total of 5d (2) Adrenal hemorrhage Comment: Spontaneous adrenal hemorrhage resulting in adrenal crisis Xarelto stopped Abd pain resolved (3) DVT (deep venous thrombosis) Comment: h/o of one prior provoked DVT and anticoagulated with Xarelto for the last several years Xarelto interrupted for knee surgery, but resumed at discharge Doppler of the LLE demonstrated L popliteal and tibial vein DVT Discussed placement of an IVC filter with the patient and his , which they were not in favor of They would prefer to monitor for propagation of the clot and understand risk and symptoms of PE Would recommend repeat Doppler in ~2 weeks and if progressed, IVC filter should be placed (4) S/P total knee arthroplasty Comment: Appears to be healing well Knee aspirate c/w hemorrhage, no signs of infection Appreciate ortho input (5) Hypertension Comment: Now normotensive (6) Full code status Status and Disposition: Inpatient. Anticipate likely dc tomorrow home. Patient would like to establish follow up care with Dr Concetta Mcmullen following discharge.
[2017-06-02 05:53] LABS: Hematocrit 29 % (42-52); Hemoglobin 9.6 g/dl (14.0-18.0); Mean Corpuscular HGB Conc 34 g/dl (31-36); Mean Corpuscular Hemoglobin 29 pg (27-31); Mean Corpuscular Volume 86 fL (80-94); Mean Platelet Volume 8 um3 (7.4-10.4); Red Blood Count 3.33 10^6/ul (4.0-5.4); Red Cell Distribution Width 14 % (10.5-15); White Blood Count 8.1 10^3/ul (3.5-10.8)
[2017-06-02 05:59] LABS: Comments Flag Yes
[2017-06-02 06:04] LABS: Calcium 8.1 mg/dL (8.6-10.3); EGFR African American 93.3 (>60); EGFR Non-African American 72.5 (>60); Potassium 3.4 mmol/L (3.5-5.0)
[2017-06-02] MEDS: Acetaminophen TAB* 325 MG PO PRN (08:32)
[2017-06-02] MEDS ORDERED: predniSONE TAB* 20 MG PO SCH (09:00)
[2017-06-02 09:09] LABS: C Reactive Protein 56.52 mg/L (< 5.00)
[2017-06-02] MEDS ORDERED: Potassium Chlor TAB* 20 MEQ TAB.ER PO ONE (09:24)
[2017-06-02 14:25] VITALS: BP 133/80
--- NOTE | 2017-06-03 04:50 | DS ---
CC: Dr. Concetta Mcmullen; Dr. Copeland; Dr. Butt; Dr. Lopez * DISCHARGE SUMMARY: DATE OF ADMISSION: 05/30/17 DATE OF DISCHARGE: 06/02/17 PRIMARY CARE PROVIDER: The family is in the process of switching the provider, used to be Dr. Hernández, but they are planning to switch to see Dr. Concetta Mcmullen. DISCHARGE DIAGNOSES: 1. Fever. 2. 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 3. Nonspecific pneumatosis of colon noted on the CAT scan, but no cultures that grew positive organism of blood cultures. 4. Below the knee DVT in the left lower extremity. 5. Status post left knee replacement surgery at the beginning of May by Dr. Lopez. 6. A 5-mm lung nodule that needs to be followed up in approximately [address] 7. Thrombocytopenia. 8. On conveyor monitor, the patient had an occasional missed beat. His propranolol was discontinued. Please note that according to EKG from the beginning of May, the patient already had this abnormality noted. SECONDARY DIAGNOSES: 1. Left total knee replacement performed by Dr. Lopez on 05/21/17. 2. 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 3. Benign prostatic hyperplasia. DVT following a soft tissue injury 4 years ago in the lower extremity. LABORATORY DATA/DIAGNOSTIC STUDIES: Laboratory data and studies performed during hospital stay included: On 06/02/17; white blood cell count of 8.1, hemoglobin 9.6, hematocrit of 29, and platelets 48. Sodium 137, potassium 3.4, chloride 106, carbon dioxide 24, BUN 20, creatinine 1.05. C-reactive protein of 56.5. C-reactive protein on admission was 194. Initial troponin was 0.33 at presentation and 0.18 on 05/31/17. Venous Doppler studies obtained on 05/30/17 showed left popliteal and tibial DVT below the knee. Chest, abdomen and pelvis CT obtained on 05/30/17. Impression: "Findings are most consistent with bilateral adrenal hemorrhage. Please correlate to clinical signs and symptoms of adrenal crisis. Pneumatosis is noted on the wall of the colon of the hepatic flexure. A finding that can be seen in the setting of bowel infarction. There are also air fluid levels throughout the proximal colon indicating diarrheal illness. Pulmonary nodule in the right minor fissure with an average dimension of 5 mm, morphology was consistent with an lymph node. The patient possesses high risk factor for lung cancer and this can be followed according to the Fleischner Society Criteria. The patient's influenza test was negative on admission. Microbiology report shows negative blood cultures. The patient also had an aspiration of this postoperative left knee, which showed 5+ neutrophils, no organism seen. Consultants during the hospital stay included the intensivists as well as Dr. Lopez and Dr. Betancur from Orthopedic Surgery. HOSPITALIZATION COURSE: Terrence Hauser is a 57-year-old male who had history of DVT and had been on Xarelto until his planned surgery for left knee replacement on 05/21/17. Postoperatively, he was discharged and he was doing well. He restarted his Xarelto that he took before his surgery for his history of DVT 4 years prior. He was placed on morphine for pain control as well as Percocet and developed constipation. It is not relieved by multiple [id number] laxatives as well as enemas. The patient presented to the hospital after he was seen in [facility] and our ER for a couple of days with complaints of abdominal pain. On 05/30/17, he was noted to be hypotensive, febrile with acute kidney injury, elevated troponins. He was also noted to be mildly thrombocytopenic. He was also coagulopathic with INR of 2.16 at admission that could be related to this that he had been using Xarelto. The patient was admitted to the intensive care unit, needed to be placed on pressors and supportive treatment with intravenous fluids and initially broad- spectrum antibiotics. After a couple of days of his hospital stay, his vitals normalized and it was noted that the patient's septic workup is negative, and the patient likely had the above-mentioned symptoms purely due to adrenal hemorrhage. Dr. Betancur and Dr. Lopez's saw the patient in consultation and aspirated the left postoperative knee. So far the results of the cultures are negative. At this point, the suspicion is that the patient developed a bout of adrenal hemorrhage that was spontaneous when he was placed on Xarelto for anticoagulation. That led to above mentioned symptoms and his overall very poor status and hypotensive shock. The patient recovered very well and after couple of days in the intensive care unit, he was transferred to medical floor when he was observed for over 24 hours off his antibiotics. His C-reactive protein was markedly lower than before on the day of discharge. He was ambulated on the hallways. He has has had 2 to 3 loose bowel movements a day without any symptoms of abdominal pain. He was noted to have an occasional missed beat on telemetry monitored bed without marked bradycardia. It was noted that the patient was on propranolol for benign tremor in the past and the propranolol was discontinued at discharge. It was also noted on the EKG on 05/13/17, the patient already had missed QRS noted and it is most likely a chronic finding. The patient had incidental 5-mm nodule noted on the CT of the lungs that needs to be followed with the CAT scan in approximately 12 months. With his adrenal insufficiency in crisis, the patient is going to be continued on prednisone at 20 mg daily. The patient is recommended to follow up with his primary care provider of his choice, which is going to be Dr. Concetta Mcmullen and also call Dr. Butt's office from Endocrinology to schedule a followup appointment to evaluate his adrenal function. The patient was strongly recommended not to stop the prednisone until directed by his primary care provider or his software developer consultant later on after evaluation. The patient was also found to have [id number] DVT in the left postoperative leg. An IVC filter placement was discussed with the patient and the patient's , they both refused. At this point, the patient is going to be not placed on any anticoagulation due to his bilateral adrenal hemorrhage and followed up with serial Doppler scans. A script for Doppler of the left lower extremity to follow up of his DVT was sent in with the patient at discharge to be done in approximately 1 to 2 weeks. The patient developed thrombocytopenia throughout his hospital stay and his platelets normalized to the level of 48 by the time of discharge. A CBC is going to be obtained as outpatient, and the patient was given a slip to have that performed in approximately 1 week. I also asked the oncology office to see the patient for a followup in approximately 1 week and that was requested after taking with one of the oncologist account retention representative. PHYSICAL EXAMINATION: At the time of discharge; blood pressure /64, heart rate of 89 and regular, respiratory rate 16, oxygen saturation 93% on room air, temperature 98.8. General: The patient is a very pleasant 57-year- old male who is in no acute distress. Alert, awake and oriented x3. HEENT: Head is atraumatic, normocephalic. Eyes: Pupils are equal, reactive to light and accommodation. Oropharynx clear. Mucosa moist. Neck: Supple. No JVD. No bruit bilaterally. Cardiovascular: Regular rate and rhythm. No murmur. Respiratory: Clear to auscultation bilaterally. Abdomen: Soft, nontender. Bowel sounds are present in all 4 quadrants. Extremities: There is a left leg edema in the postoperative knee and in the left ankle with no clubbing or cyanosis. Pulses are +2 bilaterally. On the evaluation of the left postoperative knee, the midline incision is clean. The stitches were removed. There is no evidence of dehiscence. There is no evidence of cellulitis. Neuro Evaluation: Speech is clear. Cranial nerves II through XII are grossly intact. Motor strength is 5/5 bilaterally. The patient was advised to stay yet another day for observation. He continues to be thrombocytopenic and I would prefer to monitor for another 24 hours for hemodynamic stability. Nevertheless, he requested to be discharged and his concurred. The patient is going to be discharged home. Recommendation to follow up with the primary care provider of his choice in approximately 1 to 2 weeks and above - mentioned recommendation with CBC in 1 week and a venous Doppler study in 1 to 2 weeks. Once again, oncology office should be calling the patient with a followup appointment scheduled within the next 1 to 2 weeks. Please note that this is a short summary of the patient's hospitalization. Please refer to further medical records for details. TIME SPENT: Approximately 50 minutes were spent on the patient's discharge. [id number]/[facility] #: [id number] TRINO
== END 2017-06-02 15:00 | disposition home or self-care (01) | DRG 424 ==
LOC: ED 14:31 → ICU 17:41 → MED 05-31 16:35
PROVIDERS: ADMIT Internal Medicine Critical Care Medicine; ATTEND Internal Medicine
PROC: 0S9G0ZX Drainage of Left Ankle Joint, Open Approach, Diagnostic (ICD-10-PCS; principal; 2017-05-31)
DX: E27.2 Addisonian crisis (principal); J98.11 Atelectasis; R57.9 Shock, unspecified; I82.432 Acute embolism and thrombosis of left popliteal vein; D68.9 Coagulation defect, unspecified; E87.2 Acidosis; D69.6 Thrombocytopenia, unspecified; I82.442 Acute embolism and thrombosis of left tibial vein; I10 Essential (primary) hypertension; K59.00 Constipation, unspecified; E27.49 Other adrenocortical insufficiency; K76.0 Fatty (change of) liver, not elsewhere classified; G25.0 Essential tremor; N40.0 Benign prostatic hyperplasia without lower urinary tract symptoms; Z96.652 Presence of left artificial knee joint; Z87.891 Personal history of nicotine dependence; K63.89 Other specified diseases of intestine; R06.03 Acute respiratory distress; E78.00 Pure hypercholesterolemia, unspecified; R40.2362 Coma scale, best motor response, obeys commands, at arrival to emergency department; R40.2142 Coma scale, eyes open, spontaneous, at arrival to emergency department; R40.2252 Coma scale, best verbal response, oriented, at arrival to emergency department; M17.11 Unilateral primary osteoarthritis, right knee; T45.515A Adverse effect of anticoagulants, initial encounter; Y92.9 Unspecified place or not applicable; R50.9 Fever, unspecified; R91.1 Solitary pulmonary nodule
CPT/HCPCS: 36415; 71010; 71250; 74176; 76705; 80048; 80053; 80202; 81003; 81015; 83605; 83735; 84100; 84484; 85025; 85027; 85060; 85610; 85730; 86140; 86850; 86900; 86901; 87040; 87070; 87205; 87502; 87640; 87641; 89051; 89060; 93005; A9270-GY; J1720; J2405; J2543; J3370; J7512

== ENCOUNTER 2017-06-13 14:20 | Emergency (ER) | payer BC ==
[2017-06-13 16:29] LABS: ABS Basophils 0.1 10^3/ul (0-0.2); ABS Eosinophils 0 10^3/ul (0-0.6); ABS Lymphocytes 0.7 10^3/ul (1.0-4.8); ABS Monocytes 0.6 10^3/ul (0-0.8); ABS Neutrophils 9.5 10^3/ul (1.5-7.7); ABS Nucleated RBC 0 10^3/ul; Eosinophil % 0.1 % (0-6); Hematocrit 34 % (42-52); Hemoglobin 11.5 g/dl (14.0-18.0); Lymphocyte % 6.4 % (25-47); Mean Corpuscular HGB Conc 33 g/dl (31-36); Mean Corpuscular Hemoglobin 28 pg (27-31); Mean Corpuscular Volume 83 fL (80-94); Mean Platelet Volume 7 um3 (7.4-10.4); Nucleated Red Blood Cells % 0; Platelet Count 152 10^3/ul (150-450); Red Blood Count 4.12 10^6/ul (4.0-5.4); Red Cell Distribution Width 14 % (10.5-15); White Blood Count 10.9 10^3/ul (3.5-10.8)
[2017-06-13 16:46] LABS: EGFR Non-African American 68.8 (>60)
[2017-06-13 16:51] LABS: INR 1.13 (0.77-1.02)
[2017-06-13] MEDS ORDERED: Iohexol 350* (CONTRAST) 500 ML MDV IV ONE (16:57)
--- NOTE | 2017-06-13 17:50 | RAD ---
INDICATION: Shortness of breath. Leg DVT. Assess for PE. COMPARISON: May 30, 2017 CT. TECHNIQUE: Multidetector CT images were obtained from the lung apices to the upper abdomen with 82 mL Omnipaque 350 IV contrast. Pulmonary angiogram protocol. Multiplanar reformation including with maximum intensity projection. REPORT: 5 mm maximum dimension low suspicion linear density at the RIGHT middle lobe is unchanged. Negative for pleural effusions. Bilateral apical blebs and RIGHT apical bulla. Negative for pneumothorax. Negative for thoracic lymphadenopathy. Negative for cardiomegaly or pericardial effusion. Normal diameter thoracic aorta. Large burden of acute pulmonary embolism with near complete occlusion of the bilateral distal main pulmonary arteries and extension into the bilateral segmental pulmonary arteries. No significant change in size of 2.9 x 2.7 cm RIGHT or 3.0 x 2.7 cm LEFT adrenal lesions. Both lesions demonstrate interval decrease in density compared with the May 30, 2017 CT there is significant partial resolution of surrounding retroperitoneal fat edema. Upper normal lymph nodes at the paula hepatis. Negative for suspicious thoracic osseous lesions. IMPRESSION: 1. Large burden of acute pulmonary embolism with near complete occlusion of the bilateral distal main pulmonary arteries with extension to the bilateral segmental pulmonary arteries. 2. Interval decrease in density of the bilateral adrenal lesions compared with the May 30, 2017 CT and partial resolution of surrounding inflammatory change most consistent with sequela of previous bilateral adrenal hemorrhages. 3. Low suspicion 5 mm maximum dimension linear density at the RIGHT middle lobe likely reflecting a parenchymal scar without change. Large burden of acute pulmonary embolism called to Dr. Serrato 06/13/2017 5:38 PM EST
--- NOTE | 2017-06-13 18:51 | ED ---
Holland Menard Stephanie, scribed for Fran Serrato MD on 06/13/17 at 1513 . Shortness of Breath - HPI Summary HPI Summary: The pt is a 57 y/o M presenting to the ED with c/o SOB that began today. Symptoms include dizziness. The pt denies fever and myalgia. The pt has been on Xarelto for 4 years due to a soft tissue injury. A week prior to his scheduled knee replacement surgery, the pt suffered an adrenal gland bleed. The pt was discharged from [facility] 2 weeks ago and a blood clot was discovered in his lower extremity. - History of Current Complaint Chief Complaint: EDShortnessOfBreath Time Seen by Provider: 06/13/17 14:44 Hx Obtained From: Patient, Family/Communications Systems Engineer - Onset/Duration: Lasting Days - 1, Still Present Timing: Constant Aggrevating Factors: Nothing Alleviating Factors: Nothing Associated Signs & Symptoms: Dizzy - Allergy/Home Medications Allergies/Adverse Reactions: Allergies Allergy/AdvReac Type Severity Reaction Status Date / Time No Known Allergies Allergy Verified 05/29/17 01:38 Home Medications: Home Medications predniSONE TAB* [Deltasone TAB*] 20 mg PO QAM 06/13/17 [History Confirmed ] PMH/Surg Hx/FS Hx/Imm Hx Endocrine/Hematology History: Reports: Hx Anticoagulant Therapy - XARELTO Denies: Hx Diabetes, Hx Thyroid Disease Cardiovascular History: Reports: Hx Hypercholesterolemia, Hx Hypertension - ON MEDICATION FOR, Other Cardiovascular Problems/Disorders - 2012- LEFT LEG DVT- ON XARELTO-LD 05/13/17 Denies: Hx Pacemaker/ICD Respiratory History: Denies: Hx Asthma, Hx Chronic Obstructive Pulmonary Disease (COPD), Hx Pulmonary Embolism GI History: Reports: Other GI Disorders - hernia Denies: Hx Ulcer History: Reports: Hx Benign Prostatic Hyperplasia Denies: Hx Renal Disease Musculoskeletal History: Reports: Hx Arthritis - BILATERAL KNEE Denies: Hx Rheumatoid Arthritis, Hx Osteoporosis Sensory History: Reports: Hx Contacts or Glasses Denies: Hx Hearing Aid Opthamlomology History: Reports: Hx Contacts or Glasses Neurological History: Reports: Other Neuro Impairments/Disorders - ESSENTIAL TREMORS Psychiatric History: Denies: Hx Panic Disorder - Surgical History Surgery Procedure, Year, and Place: ABDOMINAL HERNIA REPAIR- 07/2005. LEFT KNEE REPLACED-05/21/2017 Hx Anesthesia Reactions: No Infectious Disease History: No Infectious Disease History: Denies: Hx Clostridium Difficile, Hx Hepatitis, Hx Human Immunodeficiency Virus (HIV), Hx of Known/Suspected MRSA, Hx Shingles, Hx Tuberculosis, Hx Known/ Suspected VRE, Hx Known/Suspected VRSA, History Other Infectious Disease, Traveled Outside the [place] in Last 30 Days - Family History Known Family History: Negative: Cardiac Disease, Hypertension, Diabetes Family History: NON CONTRIBUTORY - Social History Occupation: Employed Full-time Lives: With Family Alcohol Use: None Hx Substance Use: No Substance Use Type: Reports: None Smoking Status (MU): Former Smoker Type: Cigarettes Amount Used/How Often: 8-9 CIGARETTES PER DAY X 27 YEARS OFF AND ON Have You Smoked in the Last Year: No Review of Systems Positive: Other - dizziness. Negative: Fever Positive: Shortness Of Breath Negative: Myalgia All Other Systems Reviewed And Are Negative: Yes Physical Exam - Summary Physical Exam Summary: Appearance: The patient is well-nourished in no acute distress and in no acute pain. Skin: The skin is warm and dry and skin color reflects adequate perfusion. HEENT: The head is normocephalic and atraumatic. The pupils are equal and reactive. The conjunctivae are clear and without drainage. Nares are patent and without drainage. Mouth reveals moist mucous membranes and the throat is without erythema and exudate. The external ears are intact. The ear canals are patent and without drainage. The tympanic membranes are intact. Neck: the neck is supple with full range of motion and non-tender. There are no carotid bruits. There is no neck vein distension. Respiratory: Chest is non-tender. Lungs are clear to auscultation and breath sounds are symmetrical and equal. Cardiovascular: Heart is regular rate and rhythm. There is no murmur or rub auscultated. There is no peripheral edema and pulses are symmetrical and equal. Abdomen: The abdomen is soft and non-tender. There are normal bowel sounds heard in all four quadrants and there is no organomegaly palpated. Musculoskeletal: There is no back tenderness noted. Extremities are non-tender with full range of motion. There is good capillary refill. There is no peripheral edema or calf tenderness elicited. Neurological: Patient is alert and oriented to person, place and time. The patient has symmetrical motor strength in all four extremities. Cranial nerves are grossly intact. Deep tendon reflexes are symmetrical and equal in all four extremities. Psychiatric: The patient has an appropriate affect and does not exhibit any anxiety or depression. Triage Information Reviewed: Yes Vital Signs On Initial Exam: Initial Vitals Temp Pulse Resp BP Pulse Ox 98.7 F 128 22 121/79 92 06/13/17 14:38 06/13/17 14:38 06/13/17 14:38 06/13/17 14:38 06/13/17 14:38 Vital Signs Reviewed: Yes Diagnostics - Vital Signs Vital Signs Temp Pulse Resp BP Pulse Ox 06/13/17 14:38 98.7 F 128 22 121/79 92 - Laboratory Lab Results: Lab Results 06/13/17 06/13/17 06/13/17 Range/Units 16:20 16:20 16:20 WBC 10.9 H (3.5-10.8) 10^3/ul RBC 4.12 (4.0-5.4) 10^6/ul Hgb 11.5 L (14.0-18.0) g/dl Hct 34 L (42-52) % MCV 83 (80-94) fL MCH 28 (27-31) pg MCHC 33 (31-36) g/dl RDW 14 (10.5-15) % Plt Count 152 (150-450) 10^3/ul MPV 7 L (7.4-10.4) um3 Neut % (Auto) 87.5 H (38-83) % Lymph % (Auto) 6.4 L (25-47) % Imperial % (Auto) 5.5 (1-9) % Eos % (Auto) 0.1 (0-6) % Baso % (Auto) 0.5 (0-2) % Absolute Neuts (auto) 9.5 H (1.5-7.7) 10^3/ul Absolute Lymphs (auto) 0.7 L (1.0-4.8) 10^3/ul Absolute Monos (auto) 0.6 (0-0.8) 10^3/ul Absolute Eos (auto) 0 (0-0.6) 10^3/ul Absolute Basos (auto) 0.1 (0-0.2) 10^3/ul Absolute Nucleated RBC 0 10^3/ul Nucleated RBC % 0 INR (Anticoag Therapy) (0.77-1.02) Sodium 134 (133-145) mmol/L Potassium 4.4 (3.5-5.0) mmol/L Chloride 100 L (101-111) mmol/L Carbon Dioxide 26 (22-32) mmol/L Anion Gap 8 (2-11) mmol/L BUN 16 (6-24) mg/dL Creatinine 1.10 (0.67-1.17) mg/dL Est GFR ( Amer) 88.4 (>60) Est GFR (Non-Af Amer) 68.8 (>60) BUN/Creatinine Ratio 14.5 (8-20) Glucose 117 H (70-100) mg/dL Lactic Acid (0.5-2.0) mmol/L Calcium 9.2 (8.6-10.3) mg/dL Total Bilirubin 0.50 (0.2-1.0) mg/dL AST 32 (13-39) U/L ALT 58 H (7-52) U/L Alkaline Phosphatase 56 (34-104) U/L Troponin I 0.33 H* (<0.04) ng/mL C-Reactive Protein 26.85 H (< 5.00) mg/L B-Natriuretic Peptide 22 ( - 100) pg/mL Total Protein 7.5 (6.4-8.9) g/dL Albumin 3.5 (3.2-5.2) g/dL Globulin 4.0 (2-4) g/dL Albumin/Globulin Ratio 0.9 L (1-3) 06/13/17 06/13/17 Range/Units 16:20 16:20 WBC (3.5-10.8) 10^3/ul RBC (4.0-5.4) 10^6/ul Hgb (14.0-18.0) g/dl Hct (42-52) % MCV (80-94) fL MCH (27-31) pg MCHC (31-36) g/dl RDW (10.5-15) % Plt Count (150-450) 10^3/ul MPV (7.4-10.4) um3 Neut % (Auto) (38-83) % Lymph % (Auto) (25-47) % Imperial % (Auto) (1-9) % Eos % (Auto) (0-6) % Baso % (Auto) (0-2) % Absolute Neuts (auto) (1.5-7.7) 10^3/ul Absolute Lymphs (auto) (1.0-4.8) 10^3/ul Absolute Monos (auto) (0-0.8) 10^3/ul Absolute Eos (auto) (0-0.6) 10^3/ul Absolute Basos (auto) (0-0.2) 10^3/ul Absolute Nucleated RBC 10^3/ul Nucleated RBC % INR (Anticoag Therapy) 1.13 H (0.77-1.02) Sodium (133-145) mmol/L Potassium (3.5-5.0) mmol/L Chloride (101-111) mmol/L Carbon Dioxide (22-32) mmol/L Anion Gap (2-11) mmol/L BUN (6-24) mg/dL Creatinine (0.67-1.17) mg/dL Est GFR ( Amer) (>60) Est GFR (Non-Af Amer) (>60) BUN/Creatinine Ratio (8-20) Glucose (70-100) mg/dL Lactic Acid 1.4 (0.5-2.0) mmol/L Calcium (8.6-10.3) mg/dL Total Bilirubin (0.2-1.0) mg/dL AST (13-39) U/L ALT (7-52) U/L Alkaline Phosphatase (34-104) U/L Troponin I (<0.04) ng/mL C-Reactive Protein (< 5.00) mg/L B-Natriuretic Peptide ( - 100) pg/mL Total Protein (6.4-8.9) g/dL Albumin (3.2-5.2) g/dL Globulin (2-4) g/dL Albumin/Globulin Ratio (1-3) Result Diagrams: 06/13/17 16:20 06/13/17 16:20 Lab Statement: Any lab studies that have been ordered have been reviewed, and results considered in the medical decision making process. - CT Chest/Thorax CTA CT Interpretation Completed By: Radiologist - 1. Large burden of acute pulmonary embolism with near complete occlusion of the bilateral distal main pulmonary arteries with extension to the bilateral segmental pulmonary arteries. 2. Interval decrease in density of the bilateral adrenal lesions compared with the May 30, 2017 CT and partial resolution of surrounding inflammatory change most consistent with sequela of previous bilateral adrenal hemorrhages. 3. Low suspicion 5 mm maximum dimension linear density at the RIGHT middle lobe likely reflecting a parenchymal scar without change. Large burden of acute pulmonary embolism - EKG 15:11 EKG Rhythm: Sinus Tachycardia - 108 BPM Course/Dx - Course Course Of Treatment: Mr. Hauser presented to the ED C/O SOB with any exertion today. He has a known DVT and has recently been taken off his xarelto secondary to bilateral adrenal hemorrhages. Today he was found to have a large PE burden with bilateral pulmonary artery subtotal thrombus. He is being transferred to Dr. José at [facility] as he may need IR for thrombectomy or intraarterial TPA. - Diagnoses Provider Diagnoses: Pulmonary embolism - Physician Notifications Instructed by Provider To: Transfer - Critical Care Time Critical Care Time: 30-74 min Discharge - Discharge Plan Condition: Stable Disposition: TRANS HIGHER LVL OF CARE FAC Referrals: Timo Walton MD [Primary Care Provider] - The documentation as recorded by the Holland das Stephanie accurately reflects the service I personally performed and the decisions made by , Fran Serrato MD.
[2017-06-13 20:42] VITALS: BP 115/65
== END 2017-06-13 20:42 | disposition short-term general hospital (02) ==
LOC: ED 14:20
DX: I26.99 Other pulmonary embolism without acute cor pulmonale (principal); R42 Dizziness and giddiness; R06.02 Shortness of breath; Z79.01 Long term (current) use of anticoagulants; Z86.79 Personal history of other diseases of the circulatory system
CPT/HCPCS: 36415; 71275; 80053; 83605; 83880; 84484; 85025; 85610; 86140; 93005; 99285; Q9967

== ENCOUNTER 2018-05-30 15:00 | Emergency (ER) | payer BC ==
[2018-05-30 15:36] VITALS: BP 141/88
--- NOTE | 2018-05-30 16:10 | UC ---
Knee Pain HPI - HPI Summary HPI Summary: 58 yo male presents with RIGHT knee pain. He tells me that about 1.5 weeks ago he lost his footing on ice and twisted his right knee. Since that time has had pain superior to his kneecap. He has an extensive history of LEFT knee problems and blood clots within the last 5 years. He is ambulatory without assistance, but has pain with weight bearing. He sees Dr. Lopez for his LEFT knee and wishes to f/u with her for his RIGHT knee. Denies numbness or tingling. Has been taking tylenol for pain with no relief. Cannot take NSAIDs due to anticoags - History of Current Complaint Chief Complaint: UCLowerExtremity Stated Complaint: R KNEE PAIN Time Seen by Provider: 05/30/18 16:10 Hx Obtained From: Patient, Family/Study Director Onset/Duration: Sudden Onset Severity Initially: Severe Severity Currently: Severe Pain Intensity: 9 Pain Scale Used: 0-10 Numeric - Allergies/Home Medications Allergies/Adverse Reactions: Allergies Allergy/AdvReac Type Severity Reaction Status Date / Time No Known Allergies Allergy Verified 05/30/18 15:36 Home Medications: Home Medications Acetaminophen [Tylenol] 2 tab PO ONCE PRN 05/30/18 [History Confirmed 05/30/18] Fludrocortisone Acetate TAB* [Florinef TAB*] 0.1 mg PO DAILY 05/30/18 [History Confirmed 05/30/18] Primidone TAB(*) [Mysoline TAB(*)] 50 mg PO BEDTIME 05/30/18 [History Confirmed 05/30/18] Vitamin B Complex CAP* [B Complex CAP*] 1 cap PO DAILY 05/30/18 [History Confirmed 05/30/18] Warfarin TAB(*) [Coumadin TAB(*)] 7.5 mg PO DAILY 05/30/18 [History Confirmed ] predniSONE TAB* [Deltasone TAB*] 7.5 mg PO DAILY 05/30/18 [History Confirmed ] PMH/Surg Hx/FS Hx/Imm Hx - Additional Past Medical History Additional PMH: BPH Cardiovascular History: Hypertension, Deep Vein Thrombosis Other History Of: Anticoagulant Therapy - XARELTO - Surgical History Surgical History: Yes Surgery Procedure, Year, and Place: ABDOMINAL HERNIA REPAIR- 07/2005. LEFT KNEE REPLACED-05/21/2017 - Family History Known Family History: Negative: Cardiac Disease, Hypertension, Diabetes Family History: NON CONTRIBUTORY - Social History Lives: With Family Alcohol Use: None Substance Use Type: None Smoking Status (MU): Former Smoker Type: Cigarettes Amount Used/How Often: 8-9 CIGARETTES PER DAY X 27 YEARS OFF AND ON Have You Smoked in the Last Year: No When Did the Patient Quit Smoking/Using Tobacco: 2002 Household Exposure Type: Cigarettes - Immunization History Most Recent Influenza Vaccination: 2016 Most Recent Tetanus Shot: 9-10 yrs ago Most Recent Pneumonia Vaccination: never Review of Systems All Other Systems Reviewed And Are Negative: Yes Constitutional: Positive: Negative Skin: Positive: Negative Respiratory: Positive: Negative Cardiovascular: Positive: Negative Neurovascular: Positive: Negative Musculoskeletal: Positive: Other: - RIGHT knee pain Neurological: Positive: Negative Psychological: Positive: Negative Physical Exam - Summary Physical Exam Summary: GENERAL: NAD. WDWN. No pain distress. SKIN: No rashes, sores, lesions, or open wounds. CHEST: No accessory muscle use. Breathing comfortably and in no distress. CV: . Pulses intact popliteal, PT, and DP. Cap refill <2seconds MSK: RIGHT KNEE: Pain at quad tendon and superior patella. FROM. Mild edema about superior patella. Strength 5/5. No patella apprehension. Negative Kamini , A/P drawer, Julisa, and varus/valgus stress. NEURO: Alert. Sensations intact and symmetric B/L LEs PSYCH: Age appropriate behavior. Triage Information Reviewed: Yes Vital Signs: Initial Vital Signs Temp 99.4 F 05/30/18 15:32 Pulse 88 05/30/18 15:32 Resp 18 05/30/18 15:32 BP 141/88 05/30/18 15:32 Pulse Ox 97 05/30/18 15:32 Vital Signs Reviewed: Yes Knee Pain Course/Dx - Course Course Of Treatment: XR: IMPRESSION: Small suprapatellar joint effusion in this otherwise normal right knee. radiograph. If the patient's symptoms persist, follow-up imaging is recommended. Suspect strain of knee. Will refer him to Dr. Lopez for further evaluation. He is asking for pain medication - given that tylenol is not helping and he cannot take NSAIDs due to anticoag status, will rx for norco to take sparingly. iSTOP:Reference #: [id number] - Differential Dx/Diagnosis Provider Diagnosis: Right knee pain Discharge - Sign-Out/Discharge Documenting (check all that apply): Patient Departure All imaging exams completed and their final reports reviewed: Yes - Discharge Plan Condition: Stable Disposition: HOME Prescriptions: Hydrocodone/Acetaminophen [Corder 5-325 Tablet] 1 each PO Q8H #9 tablet MDD 3 Patient Education Materials: Knee Pain (ED) Referrals: Timo Walton MD [Primary Care Provider] - Faby Lopez MD [Medical Doctor] - As Soon As Possible Additional Instructions: If you develop a fever, shortness of breath, chest pain, new or worsening symptoms - please call your PCP or go to the ED. Your blood pressure was high at todays visit. Please see your primary provider within 4 weeks for recheck and re-evaluation. 1) Please call Dr. Lopez to schedule a follow up appointment as soon as possible for further evaluation - Billing Disposition and Condition Condition: STABLE Disposition: Home
== END 2018-05-30 17:15 | disposition home or self-care (01) ==
LOC: UCEAST 15:00
DX: M25.561 Pain in right knee (principal); Z79.01 Long term (current) use of anticoagulants; Z87.891 Personal history of nicotine dependence; X50.1XXA Overexertion from prolonged static or awkward postures, initial encounter; Y92.9 Unspecified place or not applicable
CPT/HCPCS: 99212; G0463

== ENCOUNTER 2022-07-25 16:41 | Inpatient (IN) ==
[2022-07-25] MEDS ORDERED: NS 0.9% 1000 ml BAG 2,000 ML IV ONE (17:14)
[2022-07-25 17:36] LABS: ABS Basophils 0.1 10^3/ul (0-0.2); ABS Eosinophils 0.2 10^3/ul (0-0.6); ABS Lymphocytes 1.3 10^3/ul (1.0-4.8); ABS Neutrophils 4.9 10^3/ul (1.5-7.7); Eosinophil % 2.2 %; Hematocrit 52 % (42-52); Hemoglobin 17.2 g/dL (14.0-18.0); Lymphocyte % 17.3 %; Mean Corpuscular HGB Conc 33 g/dL (31-36); Mean Corpuscular Hemoglobin 30 pg (27-31); Mean Corpuscular Volume 89 fL (80-94); Mean Platelet Volume 7.9 fL (7.4-10.4); Nucleated Red Blood Cells % 0.1; Platelet Count 185 10^3/uL (150-450); Red Blood Count 5.82 10^6 /uL (4.18-5.48); Red Cell Distribution Width 14 % (10-15); White Blood Count 7.3 10^3/uL (3.5-10.8)
[2022-07-25 17:37] LABS: PCO2 Arterial 37 mmHg (35-45)
[2022-07-25 17:41] LABS: PO2 Arterial 52 mmHg (80-100)
[2022-07-25 17:44] LABS: Activated Partial Thrombo Time 29.3 seconds (26.0-38.0); INR 1.32 (0.88-1.18)
[2022-07-25] MEDS ORDERED: Rocuronium 50 mg VIAL 10 mg/ml 5 ml VIAL (50 mg) ONE (17:49)
[2022-07-25] MEDS ORDERED: Succinylcholine 200 mg VIAL 20 mg/ml 10 ml VIAL (200 mg) ONE (17:50)
[2022-07-25 17:58] LABS: Urine Appearance Cloudy; Urine Bilirubin Negative (Negative); Urine Blood 3+ (Negative); Urine Color Amber; Urine Glucose Negative (Negative); Urine Ketones 2+ (Negative); Urine Nitrite Negative (Negative); Urine Protein 2+(100 mg/dL) (Negative); Urine Specific Gravity 1.027 (1.002-1.030); Urine Urobilinogen Negative (Negative)
[2022-07-25 18:01] LABS: Albumin 4.1 g/dL (3.2-5.2); Albumin/Globulin Ratio 1.5 (1-3); C Reactive Protein 141.58 mg/L (<8.01); Calcium 9.1 mg/dL (8.6-10.3); Creatinine, Serum 2.02 mg/dL (0.67-1.17); Globulin 2.7 g/dL (2-4); Potassium 4.1 mmol/L (3.5-5.0); Total Protein 6.8 g/dL (6.4-8.9); eGFR CKD-EPI 36.4 (>60)
[2022-07-25] MEDS ORDERED: LORazepam 2 mg VIAL 1 ml IV PUSH ONE (18:04)
[2022-07-25] MEDS ORDERED: Lorazepam PYXIS KEY PRN (18:04)
[2022-07-25 18:13] LABS: Urine Amorphous Crystals Present (Absent); Urine Bacteria Absent (Absent); Urine Red Blood Cell 1+(3-5/hpf) (Absent); Urine Squamous Epithelial Cell Present (Absent); Urine White Blood Cell Trace(0-5/hpf) (Absent)
[2022-07-25 18:55] LABS: High Sensitivity Troponin 1 Hr 127 pg/mL (<20)
[2022-07-25] MEDS ORDERED: Iodixanol (CONTRAST) 320 MG/ML 100 ML SDV IV ONE (19:16)
[2022-07-25] MEDS ORDERED: Cefepime 2 GM in Dextrose 2 GM/50 ML BAG IV ONE (19:23)
[2022-07-25] MEDS ORDERED: metroNIDAZOLE IV 500 MG/100ML 500 MG/100 ML BAG IVPB ONE (19:23)
[2022-07-25 19:47] LABS: Body Fluid Source Cerebral Spinal
[2022-07-25] MEDS ORDERED: Vancomycin 1,500 MG in NS 0.9% 250 ml 250 ML IVPB SCH (20:00)
[2022-07-25 20:01] LABS: CSF Glucose 67 mg/dL (40-70)
[2022-07-25 20:10] LABS: Urine Benzodiazepine Screen None Detected (None Detect); Urine Cannabinoids Screen None Detected (None Detect); Urine Opiates Screen None Detected (None Detect)
[2022-07-25 20:17] LABS: Body Fluid Appearance Clear; Body Fluid Color Colorless; CSF Tube # 4
[2022-07-25 20:21] LABS: Body Fluid WBC 1 /mcL
[2022-07-25 20:22] LABS: PCO2 Arterial 28 mmHg (35-45); PO2 Arterial 297 mmHg (80-100)
[2022-07-25 20:26] LABS: Alcohol, S < 13 mg/dL (<13)
[2022-07-25 20:51] LABS: Body Fluid Mono 100 %; Body Fluid Total Cells Counted 1
[2022-07-25 21:26] LABS: Creatine Kinase 28762 U/L (10-223)
[2022-07-25] MEDS ORDERED: Acetaminophen IV 1 GM/100ML 1,000 MG/100 ML BAG IV PRN (21:35)
[2022-07-25] MEDS ORDERED: Hydrocortisone INJ 100 MG/2ML 2 ML VIAL IV ONE (21:44)
[2022-07-25] MEDS ORDERED: Lactated Ringers 1000 ml BAG 1,000 ML IV SCH (22:00)
[2022-07-25] MEDS ORDERED: Lactated Ringers 1000 ml BAG 1,000 ML IV ONE (22:15)
[2022-07-25] MEDS ORDERED: NS 0.9% 1000 ml BAG 1,000 ML IV ONE (23:34)
[2022-07-25] MEDS ORDERED: Norepinephrine 16MCG/ML BAGD5W 4,000 MCG/250 ML BAG IV ONE (23:35)
[2022-07-25] MEDS ORDERED: Norepinephrine 16MCG/ML BAGD5W 4,000 MCG/250 ML BAG IV SCH (23:45)
[2022-07-26 00:08] LABS: Albumin 3.4 g/dL (3.2-5.2); Albumin/Globulin Ratio 1.4 (1-3); Calcium 8.2 mg/dL (8.6-10.3); Creatinine, Serum 2.61 mg/dL (0.67-1.17); Globulin 2.5 g/dL (2-4); Total Bilirubin 1.7 mg/dL (0.2-1.0); Total Protein 5.9 g/dL (6.4-8.9); eGFR CKD-EPI 26.7 (>60)
[2022-07-26] MEDS: Pantoprazole VIAL 40 MG VIAL IV SCH ×2 (00:12→08:18)
[2022-07-26 00:24] LABS: TSH Ultra Thyroid Stim Horm 1.52 mcIU/mL (0.34-5.60)
[2022-07-26 00:26] LABS: Free T3 3.8 pg/mL (2.5-3.9); Free T4 0.97 ng/dL (0.61-1.12)
[2022-07-26 00:36] LABS: Hepatitis B Surface Antigen Nonreactive (Nonreactive)
[2022-07-26 00:39] LABS: Potassium 4.3 mmol/L (3.5-5.0)
[2022-07-26 00:41] LABS: Hepatitis A Ab IgM Negative (Negative)
[2022-07-26 00:42] LABS: Hepatitis B Core IgM Nonreactive (Nonreactive)
[2022-07-26 00:53] LABS: Hepatitis C Antibody Negative (Negative)
[2022-07-26] MEDS ORDERED: Vancomycin per Pharmacy 1 EA NOTE FOLLOW UP SCH ×2 (01:00)
[2022-07-26] MEDS ORDERED: Heparin 5000 UNITS/ML 1 mL VIAL SUBCUT SCH (01:00)
[2022-07-26 01:23] LABS: Magnesium 1.8 mg/dL (1.9-2.7)
[2022-07-26] MEDS ORDERED: Magnesium Sulfate IV 1GM/100ML 1 GM/100 ML BAG IV ONE (01:29)
[2022-07-26 03:17] LABS: PCO2 Arterial 30 mmHg (35-45); PO2 Arterial 188 mmHg (80-100)
[2022-07-26 03:24] LABS: Hematocrit 49 % (42-52); Hemoglobin 15.8 g/dL (14.0-18.0); Mean Corpuscular HGB Conc 32 g/dL (31-36); Mean Corpuscular Hemoglobin 29 pg (27-31); Mean Corpuscular Volume 90 fL (80-94); Platelet Count 146 10^3/uL (150-450); Red Blood Count 5.41 10^6 /uL (4.18-5.48); Red Cell Distribution Width 15 % (10-15); White Blood Count 6.5 10^3/uL (3.5-10.8)
[2022-07-26 03:27] LABS: INR 1.33 (0.88-1.18)
[2022-07-26 03:56] LABS: Albumin 3.2 g/dL (3.2-5.2); Albumin/Globulin Ratio 1.5 (1-3); Creatinine, Serum 2.72 mg/dL (0.67-1.17); Globulin 2.2 g/dL (2-4); Phosphorus 3.9 mg/dL (2.5-5.0); Potassium 4.8 mmol/L (3.5-5.0); Total Bilirubin 1.4 mg/dL (0.2-1.0); Total Protein 5.4 g/dL (6.4-8.9); eGFR CKD-EPI 25.5 (>60)
[2022-07-26] MEDS ORDERED: NS 0.9% 1000 ml BAG 1,000 ML IV SCH (05:00)
[2022-07-26] MEDS ORDERED: Hydrocortisone INJ 100 MG/2ML 2 ML VIAL IV ONE (07:31)
[2022-07-26 07:54] LABS: Albumin 3.2 g/dL (3.2-5.2); Albumin/Globulin Ratio 1.3 (1-3); Creatinine, Serum 2.5 mg/dL (0.67-1.17); Globulin 2.4 g/dL (2-4); Potassium 4.9 mmol/L (3.5-5.0); Total Bilirubin 1.1 mg/dL (0.2-1.0); Total Protein 5.6 g/dL (6.4-8.9); eGFR CKD-EPI 28.2 (>60)
[2022-07-26] MEDS: Cefepime 1 GM in Dextrose 1 GM/50 ML BAG IV SCH ×2 (08:17→21:26)
[2022-07-26] MEDS ORDERED: Heparin 5000 UNITS/ML 1 mL VIAL SUBCUT ONE (09:00)
[2022-07-26] MEDS: NS 0.9% 1000 ml BAG 1,000 ML IV SCH ×3 (09:49→21:13)
[2022-07-26] MEDS ORDERED: Warfarin per PHARMACY **NOTE FOLLOW UP SCH (10:00)
[2022-07-26 10:46] LABS: Magnesium 2.1 mg/dL (1.9-2.7)
[2022-07-26] MEDS ORDERED: Vancomycin 1,250 MG in NS 0.9% 250 ml 250 ML IVPB ONE (12:00)
[2022-07-26] MEDS ORDERED: Hydrocortisone INJ 100 MG/2ML 2 ML VIAL IV SCH (14:00)
[2022-07-26] MEDS: Hydrocortisone INJ 100 MG/2ML 2 ML VIAL IV SCH ×2 (15:09→19:35)
[2022-07-27] MEDS: Hydrocortisone INJ 100 MG/2ML 2 ML VIAL IV SCH (02:26)
[2022-07-27] MEDS: NS 0.9% 1000 ml BAG 1,000 ML IV SCH ×4 (03:56→20:30)
[2022-07-27] MEDS ORDERED: Vancomycin Random Level NOTE FOLLOW UP ONE (06:00)
[2022-07-27 08:19] LABS: INR 1.33 (0.88-1.18)
[2022-07-27 08:58] LABS: ALT 96 U/L (7-52); Albumin 2.6 g/dL (3.2-5.2); Albumin/Globulin Ratio 1.1 (1-3); Alkaline Phosphatase 43 U/L (35-149); Blood Urea Nitrogen 33 mg/dL (6-24); CO2 Carbon Dioxide 20 mmol/L (22-32); Calcium 7.3 mg/dL (8.6-10.3); Chloride 110 mmol/L (101-111); Creatinine, Serum 1.96 mg/dL (0.67-1.17); Globulin 2.3 g/dL (2-4); Glucose 129 mg/dL (70-100); Sodium 137 mmol/L (135-145); Total Protein 4.9 g/dL (6.4-8.9); Vancomycin Random 10.3 mcg/mL; eGFR CKD-EPI 37.7 (>60)
[2022-07-27 09:03] LABS: Anion Gap 7 mmol/L (2-11)
[2022-07-27] MEDS: Cefepime 1 GM in Dextrose 1 GM/50 ML BAG IV SCH ×2 (10:01→20:38)
[2022-07-27] MEDS: Pantoprazole VIAL 40 MG VIAL IV SCH (10:01)
[2022-07-27 10:58] LABS: Creatine Kinase 26948 U/L (10-223)
[2022-07-27 11:58] LABS: Potassium Redraw 4.5 mmol/L (3.5-5.0)
[2022-07-27] MEDS ORDERED: Vancomycin 1,250 MG in NS 0.9% 250 ml 250 ML IVPB ONE (15:00)
[2022-07-27 15:19] LABS: ABS Lymphocytes 0.5 10^3/ul (1.0-4.8); ABS Monocytes 0.8 10^3/ul (0-0.8); ABS Neutrophils 8.2 10^3/ul (1.5-7.7); Eosinophil % 0.1 %; Hematocrit 46 % (42-52); Hemoglobin 14.9 g/dL (14.0-18.0); Lymphocyte % 5.6 %; Mean Corpuscular HGB Conc 33 g/dL (31-36); Mean Corpuscular Hemoglobin 29 pg (27-31); Mean Corpuscular Volume 89 fL (80-94); Platelet Count 164 10^3/uL (150-450); Red Blood Count 5.12 10^6 /uL (4.18-5.48); Red Cell Distribution Width 15 % (10-15); White Blood Count 9.6 10^3/uL (3.5-10.8)
[2022-07-28] MEDS ORDERED: Vancomycin Random Level NOTE FOLLOW UP ONE (06:00)
[2022-07-28 06:01] LABS: ABS Basophils 0.1 10^3/ul (0-0.2); ABS Eosinophils 0.1 10^3/ul (0-0.6); ABS Lymphocytes 1.2 10^3/ul (1.0-4.8); ABS Monocytes 0.8 10^3/ul (0-0.8); ABS Neutrophils 5.2 10^3/ul (1.5-7.7); Eosinophil % 1.3 %; Hematocrit 42 % (42-52); Hemoglobin 13.8 g/dL (14.0-18.0); Lymphocyte % 16.6 %; Mean Corpuscular HGB Conc 33 g/dL (31-36); Mean Corpuscular Hemoglobin 29 pg (27-31); Mean Corpuscular Volume 89 fL (80-94); Mean Platelet Volume 8.1 fL (7.4-10.4); Platelet Count 139 10^3/uL (150-450); Red Blood Count 4.69 10^6 /uL (4.18-5.48); Red Cell Distribution Width 15 % (10-15); White Blood Count 7.4 10^3/uL (3.5-10.8)
[2022-07-28 06:03] LABS: INR 1.65 (0.88-1.18)
[2022-07-28] MEDS: NS 0.9% 1000 ml BAG 1,000 ML IV SCH ×2 (06:18→17:08)
[2022-07-28 06:45] LABS: ALT 89 U/L (7-52); Albumin 2.7 g/dL (3.2-5.2); Albumin/Globulin Ratio 1.2 (1-3); Alkaline Phosphatase 36 U/L (35-149); Blood Urea Nitrogen 36 mg/dL (6-24); CO2 Carbon Dioxide 22 mmol/L (22-32); Calcium 7.6 mg/dL (8.6-10.3); Chloride 111 mmol/L (101-111); Creatinine, Serum 1.81 mg/dL (0.67-1.17); Globulin 2.2 g/dL (2-4); Glucose 107 mg/dL (70-100); Magnesium 2.2 mg/dL (1.9-2.7); Sodium 139 mmol/L (135-145); Total Protein 4.9 g/dL (6.4-8.9); Vancomycin Random 10.9 mcg/mL; eGFR CKD-EPI 41.5 (>60)
[2022-07-28 06:46] LABS: Anion Gap 6 mmol/L (2-11)
[2022-07-28 07:11] LABS: Creatine Kinase 17071 U/L (10-223)
[2022-07-28] MEDS: Pantoprazole VIAL 40 MG VIAL IV SCH (08:10)
[2022-07-28] MEDS: Cefepime 1 GM in Dextrose 1 GM/50 ML BAG IV SCH ×2 (09:43→20:50)
[2022-07-28 14:11] LABS: Potassium Redraw 4.5 mmol/L (3.5-5.0)
[2022-07-28] MEDS: Vancomycin 1000 MG in NS 0.9% 250 ML IVPB SCH (15:10)
[2022-07-28] MEDS: Warfarin DAILY REMINDER **NOTE FOLLOW UP SCH (19:36)
[2022-07-29] MEDS: Vancomycin 1000 MG in NS 0.9% 250 ML IVPB SCH ×3 (02:00→23:45)
[2022-07-29 05:03] LABS: ABS Eosinophils 0.1 10^3/ul (0-0.6); ABS Lymphocytes 1.1 10^3/ul (1.0-4.8); ABS Monocytes 0.6 10^3/ul (0-0.8); ABS Neutrophils 3.7 10^3/ul (1.5-7.7); Eosinophil % 2.4 %; Hematocrit 39 % (42-52); Hemoglobin 12.8 g/dL (14.0-18.0); Lymphocyte % 20.1 %; Mean Corpuscular HGB Conc 33 g/dL (31-36); Mean Corpuscular Hemoglobin 29 pg (27-31); Mean Corpuscular Volume 89 fL (80-94); Mean Platelet Volume 8.1 fL (7.4-10.4); Platelet Count 125 10^3/uL (150-450); Red Blood Count 4.44 10^6 /uL (4.18-5.48); Red Cell Distribution Width 15 % (10-15); White Blood Count 5.6 10^3/uL (3.5-10.8)
[2022-07-29 05:07] LABS: INR 2.13 (0.88-1.18)
[2022-07-29 05:30] LABS: Albumin 2.9 g/dL (3.2-5.2); Albumin/Globulin Ratio 1.5 (1-3); Calcium 7.8 mg/dL (8.6-10.3); Creatinine, Serum 1.5 mg/dL (0.67-1.17); Globulin 1.9 g/dL (2-4); Magnesium 1.8 mg/dL (1.9-2.7); Potassium 3.9 mmol/L (3.5-5.0); Total Bilirubin 0.9 mg/dL (0.2-1.0); Total Protein 4.8 g/dL (6.4-8.9)
[2022-07-29] MEDS ORDERED: Magnesium Sulfate IV 1GM/100ML 1 GM/100 ML BAG IV ONE (06:16)
[2022-07-29] MEDS: Cefepime 1 GM in Dextrose 1 GM/50 ML BAG IV SCH ×2 (08:49→19:54)
[2022-07-29] MEDS: Pantoprazole VIAL 40 MG VIAL IV SCH (08:49)
[2022-07-29] MEDS: NS 0.9% 1000 ml BAG 1,000 ML IV SCH ×2 (09:01→20:02)
[2022-07-29] MEDS: Warfarin DAILY REMINDER **NOTE FOLLOW UP SCH (17:36)
[2022-07-30 05:55] LABS: ABS Eosinophils 0.2 10^3/ul (0-0.6); ABS Monocytes 0.7 10^3/ul (0-0.8); ABS Neutrophils 3.7 10^3/ul (1.5-7.7); Eosinophil % 3.4 %; Hematocrit 40 % (42-52); Hemoglobin 13.1 g/dL (14.0-18.0); Lymphocyte % 18.3 %; Mean Corpuscular HGB Conc 33 g/dL (31-36); Mean Corpuscular Hemoglobin 29 pg (27-31); Mean Corpuscular Volume 88 fL (80-94); Platelet Count 131 10^3/uL (150-450); Red Cell Distribution Width 14 % (10-15); White Blood Count 5.6 10^3/uL (3.5-10.8)
[2022-07-30 06:01] LABS: INR 2.3 (0.88-1.18)
[2022-07-30 06:19] LABS: Creatinine, Serum 1.35 mg/dL (0.67-1.17); Magnesium 1.8 mg/dL (1.9-2.7); Potassium 3.9 mmol/L (3.5-5.0)
[2022-07-30] MEDS ORDERED: Magnesium Sulfate 2 gm BAG 2 GM/50 ML BAG IVPB ONE (06:58)
[2022-07-30] MEDS: NS 0.9% 1000 ml BAG 1,000 ML IV SCH (08:07)
[2022-07-30] MEDS: Pantoprazole VIAL 40 MG VIAL IV SCH (08:14)
[2022-07-30] MEDS: Cefepime 1 GM in Dextrose 1 GM/50 ML BAG IV SCH ×2 (10:44→21:12)
[2022-07-30] MEDS ORDERED: Vancomycin Trough Check NOTE FOLLOW UP ONE (11:30)
[2022-07-30 13:00] LABS: Vancomycin Trough 13.2 mcg/mL
[2022-07-30] MEDS: Vancomycin 1000 MG in NS 0.9% 250 ML IVPB SCH (13:39)
[2022-07-30] MEDS ORDERED: Lactated Ringers 1000 ml BAG 1,000 ML IV SCH ×2 (16:00→17:33)
[2022-07-31] MEDS: Vancomycin 1000 MG in NS 0.9% 250 ML IVPB SCH (01:58)
[2022-07-31 06:18] LABS: ABS Eosinophils 0.3 10^3/ul (0-0.6); ABS Lymphocytes 1.1 10^3/ul (1.0-4.8); ABS Monocytes 0.7 10^3/ul (0-0.8); ABS Neutrophils 3.7 10^3/ul (1.5-7.7); Eosinophil % 4.8 %; Hematocrit 39 % (42-52); Hemoglobin 12.9 g/dL (14.0-18.0); Lymphocyte % 18.3 %; Mean Corpuscular HGB Conc 33 g/dL (31-36); Mean Corpuscular Hemoglobin 29 pg (27-31); Mean Corpuscular Volume 87 fL (80-94); Mean Platelet Volume 7.8 fL (7.4-10.4); Platelet Count 171 10^3/uL (150-450); Red Blood Count 4.44 10^6 /uL (4.18-5.48); Red Cell Distribution Width 14 % (10-15); White Blood Count 5.8 10^3/uL (3.5-10.8)
[2022-07-31 06:24] LABS: INR 2.17 (0.88-1.18)
[2022-07-31 06:49] LABS: Calcium 8.1 mg/dL (8.6-10.3); Creatinine, Serum 1.14 mg/dL (0.67-1.17); Magnesium 1.7 mg/dL (1.9-2.7); Potassium 3.8 mmol/L (3.5-5.0); eGFR CKD-EPI 72.3 (>60)
[2022-07-31] MEDS ORDERED: Magnesium Sulf 4 GM/100 ML IV 4,000 MG/100 ML BAG IVPB ONE (07:31)
[2022-07-31] MEDS: Pantoprazole VIAL 40 MG VIAL IV SCH (08:45)
[2022-07-31] MEDS: Cefepime 1 GM in Dextrose 1 GM/50 ML BAG IV SCH (08:53)
[2022-07-31] MEDS: Warfarin DAILY REMINDER **NOTE FOLLOW UP SCH (21:56)
[2022-08-01 07:00] LABS: Calcium 8.2 mg/dL (8.6-10.3); Creatinine, Serum 1.44 mg/dL (0.67-1.17); eGFR CKD-EPI 54.6 (>60)
[2022-08-01] MEDS ORDERED: Lactated Ringers 1000 ml BAG 1,000 ML IV SCH (08:00)
[2022-08-01] MEDS: Pantoprazole VIAL 40 MG VIAL IV SCH (09:48)
[2022-08-01 12:01] VITALS: BP 111/70
[2022-08-01 14:02] LABS: Calcium 8.5 mg/dL (8.6-10.3); Creatinine, Serum 1.41 mg/dL (0.67-1.17); Potassium 4.3 mmol/L (3.5-5.0)
[2022-08-02] MEDS ORDERED: Vancomycin Trough Check NOTE FOLLOW UP ONE (11:30)
== END 2022-08-01 14:55 | disposition home or self-care (01) | DRG 720 ==
LOC: ED 16:41 → SUATTDRO 20:09 → EDHOLD 20:09 → ICU 23:37 → MEDTELE 07-30 04:09
PROVIDERS: ADMIT Internal Medicine; ATTEND Internal Medicine